=== PATIENT | male | born 1960 | race Caucasian/White ===

== ENCOUNTER 2019-01-24 12:10 | Inpatient (IN) ==
[2019-01-24 13:14] LABS: BASO# 0.02 X1000 (0.0-0.2); BASO% 0.1 % (0.0-0.8); IMM GRAN% 0.3 % (0.0-0.5); LYMPH# 0.57 X1000 (1.2-3.4); MCH 29.2 PG (27-31); MCHC 31.8 g/dL (33-37); MCV 91.9 FL (81-99); MONO# 1.48 X1000 (0.11-0.59); MONO% 5.1 % (1.7-9.3); MPV 9.3 FL (7.4-10.4); NEUT# 26.85 X1000 (1.4-6.5); NEUT% 92.5 % (42.2-75.2); PLT 201 X1000 (130-400); RBC 4.79 XMIL (4.7-6.1); RDW 13.6 % (11.5-14.5); WBC 29.02 X1000 (4.8-10.8)
--- NOTE | 2019-01-24 13:14 | PROVIDER DOCUMENTATION ---
HPI-General Adult - General Chief Complaint: Shortness of Breath Stated Complaint: LOW OXYGEN LEVEL Time Seen by Provider: 01/24/19 12:29 Source: patient Allergies/Adverse Reactions: Patient Allergies Allergy/AdvReac Type Severity Reaction Status Date / Time cephalexin monohydrate * Allergy Unknown Verified 01/10/18 12:54 [From Keflex] diazepam [From Valium] Allergy Unknown Verified 01/10/18 12:54 Home Medications: Home Medication List Medication Instructions Recorded Confirmed Last Taken Type Aspirin 81 mg PO DAILY 08/09/12 01/24/19 03/31/17 History Azelastine 137 Mcg Nasal Ennis 2 spray SANJEEV BID 08/09/12 01/24/19 03/31/17 History [Astelin Nasal Ennis] Docusate Sodium [Colace] 100 mg PO BID 08/09/12 01/24/19 03/31/17 History Fenofibrate 160 mg PO QHS 08/09/12 01/24/19 03/31/17 History Fluoxetine [Prozac] 10 mg PO BID 08/09/12 01/24/19 03/31/17 History Furosemide [Lasix] 20 mg PO DAILY 08/09/12 01/24/19 03/31/17 History Montelukast Sodium 10 mg PO QHS 08/09/12 01/24/19 03/31/17 History Donner-3 Fatty Acids/Fish Oil [Fish 1 each PO TID 08/09/12 01/24/19 03/31/17 History Oil 1,000 mg Softgel] Iron Carbonyl/Ascorbic Acid 1 each PO DAILY #0 tablet 01/31/14 01/24/19 03/31/17 Rx [Icar-C] Acetaminophen [Tylenol] 1,000 mg PO Q6H PRN PRN 01/12/18 01/24/19 Unknown History Buspirone [Buspar] 5 mg PO BID 01/12/18 01/24/19 Unknown History Ipratropium/Albuterol INH 1 puff INH RTQ8H 01/12/18 01/24/19 Unknown History [Combivent Respimat Inhaler] Metoclopramide [Reglan] 10 mg PO AC + HS 01/12/18 01/24/19 Unknown History Risperidone [Risperdal] 0.5 mg PO DAILY #0 01/16/18 01/24/1918 Rx Risperidone [Risperdal] 1 mg PO BID tablet 01/16/18 01/24/19 Unknown Rx Divalproex Sodium [Divalproex 3 tab PO HS 01/24/19 01/24/19 Unknown History Sodium ER] Lactulose 10 gm PO DAILY 01/24/19 01/24/19 Unknown History Lisinopril 10 mg PO DAILY 01/24/19 01/24/19 Unknown History Lovastatin 40 mg PO HS 01/24/19 01/24/19 Unknown History Ondansetron HCl 1 tab PO TID PRN PRN 01/24/19 01/24/19 Unknown History Pantoprazole Sodium [Protonix] 40 mg PO DAILY 01/24/19 01/24/19 Unknown History Potassium Chloride E.r. [Klor-Con] 10 meq PO DAILY 01/24/19 01/24/19 Unknown History Tamsulosin HCl 0.4 mg PO HS 01/24/19 01/24/19 Unknown History - History of Present Illness -Gen Adult Nature of Presenting Problems: Pt. is 59 yom that presents from a retirement with c/o SOB and low O2 sats. Staff reports that the nurse got a low O2 sat and sent him to his PCP whom sent him to the ED for evaluation. He is non-verbal and there is no other i nformation. Location of Pain/Injury: reports: none. denies: head, face, mouth, neck, chest, upper extremity, hand(s), abdomen, back, pelvis, genitalia, lower extremity, feet, upper body, lower body, generalized, other Pain Radiation: reports: no radiation. denies: arm(s), back, buttocks, chest, epigastric, feet, groin, jaw, flank (L), legs (lower), LLQ, LUQ, neck, periumbilical, flank (R), RLQ, RUQ, shoulder(s), scapula, scrotal, sternal notch , suprapubic, legs (upper), urethral, vaginal, other Quality of Pain: reports: none. denies: aching, pressure, tightness Severity: reports: moderate. denies: mild, severe Onset/Duration: reports: unsure Timing: reports: still present. denies: improving, intermittent, getting worse Context/Activities at Onset: reports: none. denies: light activity, moderate activity, vigorous activity, recent emotional stress, recent physical stress, recent trauma history, possible bad food, cold exposure, eating, out of country travel, rest, sleep, sexual activity, other Modifying Factors: improves with: nothing Associated Symptoms: reports: shortness of breath. denies: denies symptoms, anxiety, arm pain, back/neck pain, chest pain, constipation, cough, diaphoresis, diarrhea, dizziness, EENT symptoms, fatigue, fever/chills, genitourinary problems, headaches, heartburn, joint pain, loss of appetite, malaise, muscle aches, sinus congestion/drainage, nausea, rash, seizure, sensory/motor loss, pain with inspiration, swelling/mass in abdomen, syncope, vomiting, weakness, trouble walking, other Similar Symptoms Previously?: Yes Recently seen or treated by another doctor?: No Review of Systems - Adult - REVIEW OF SYSTEMS - ADULT Constitutional: reports: no symptoms reported Eyes: reports: no symptoms reported Ears, Nose, Mouth & Throat: reports: no symptoms reported Cardiovascular: reports: no symptoms reported Respiratory: reports: see HPI, shortness of breath. denies: chronic cough, hemoptysis, wheezing Gastrointestinal: reports: no symptoms reported Genitourinary: reports: no symptoms reported Musculoskeletal: reports: no symptoms reported Integumentary: reports: no symptoms reported Neurological: reports: no symptoms reported Psychiatric: reports: no symptoms reported Past History - Adult - PAST MEDICAL HISTORY-ADULT Review of Records: reports: Old Records Reviewed, Nursing Assessment Review, Medications Reviewed, Social history reviewed & non-contributory. Major Childhood Illnesses: reports: denies history Cardiovascular: reports: HTN, hyperlipidemia Respiratory: reports: asthma Gastrointestinal: reports: GERD Genitourinary: reports: kidney disease Musculoskeletal: reports: arthritis Neurological: reports: cognitive dysfunction, other (cerebral palsy; MR) Psychiatric: reports: psychiatric problems Endocrine/Immune: reports: denies history, Diabetes Other Conditions: reports: denies history - PRIOR SURGERIES/PROCEDURES Surgical/Procedure History: reports: none - IMMUNIZATION STATUS Childhood Immunizations: See Nurse Assessment Flu Vaccine: See Nurse Assessment - FAMILY HISTORY Family History: reviewed, not pertinent - SOCIAL HISTORY Smoking: non-smoker Physical Exam-General - PHYSICAL EXAM-ADULT Initial Vital Signs Reviewed: Yes - CONSTITUTIONAL General Appearance: mild distress, obese, lethargic. negative: anxious, slow to respond, obtunded, combative - EYES Eyes: PERRL/EOMI, pink conjunctivae - HEAD, EARS, NOSE, MOUTH & THROAT HENMT: normocephalic/atraumatic - NECK Neck: normal inspection - RESPIRATORY Respiratory: rhonchi (mild bilaterally). negative: crackles, stridor, wheezing - CARDIOVASCULAR Cardiovascular: normal peripheral pulses, regular rate, rhythm, no edema - GASTROINTESTINAL (ABDOMEN) Abdominal Exam: normal bowel sounds, non tender, soft - LYMPHATIC Lymphatic: no adenopathy - MUSCULOSKELETAL Back Exam: normal inspection Extremity: non-tender Peripheral Pulses: radial (R): 2+, radial (L): 2+ - SKIN Integumentary: pallor. negative: blanching, jaundice, swelling - NEUROLOGIC Neurologic: grossly normal, no motor/sensory deficits - PSYCHIATRIC Psych/Mental Status: normal mood/affect (Normal for patient.). negative: anxious, depressed affect, paranoid, tearful Progress - PLAN OF CARE/RESULTS Progress/Plan/Lab Results: Vital Signs - 8 hr 01/24/19 12:15 Temperature 98.8 F Pulse Rate 94 H Respiratory Rate 18 Blood Pressure 105/67 O2 Sat by Pulse Oximetry 86 L Orders Category Date Time Status Saline Loc NOW Care 01/24/19 12:33 Active CHEST-PORTABLE [RAD] Stat Exams 01/24/19 12:34 Ordered ABG [RESP] Routine Lab 01/24/19 12:35 Ordered BLOOD CULTURE [BLDCUL] Stat Lab 01/24/19 12:35 Uncollected CBC WITH ELECTRONIC DIFF [HEME] Stat Lab 01/24/19 12:53 Results COMPREHENSIVE METABOLIC PANEL [CHEM] Stat Lab 01/24/19 12:53 Received LACTATE, PLASMA [CHEM] Stat Lab 01/24/19 12:53 Received PRO B-NATRIURETIC PEPTIDE Stat Lab 01/24/19 12:53 Received TROPONIN T Stat Lab 01/24/19 12:53 Received URINALYSIS W/POSS RFLX CULT [URINALYSIS] Stat Lab 01/24/19 12:33 Uncollected EKG [EKG] Stat Ther 01/24/19 12:33 Ordered Result Diagrams: 01/24/19 12:53 01/24/19 12:53 - XRAY 1 XRAY Study: Chest ([facility] - [address], [address], [place] [address] [facility] - [address] [facility] [place] [address] Department of Imaging Patient: GODWIN JOHNSON EADM Date: 01/24/19MR#: [id number] : 1960DM Status: REG ERAcct#: [id number] Age/Sex: 59/MRoom/Bed: Loc: ED Ordering Physician: Opal Tang Family Physician: Irving Holloway MD Reason for Procedure: SOB Signed CHEST-PORTABLE - 01/24/2019 INDICATION: SOB COMPARISON: 08/30/2018 FINDINGS: Lung volumes are critically low. There is dense infiltrate in the left midlung and lung base. Heart size is top normal. No pneumothorax or large pleural effusion. IMPRESSION: Dense left-sided pneumonia. Critically low lung volumes. Electronically signed by Ronny Beckman 01/24/2019 1:35 PM 01/24/19 1335 Interpreting Physician: Ronny Beckman MD Dictated Date/Time: 01/24/19 1334 cc: Opal Tang; Irving Holloway MD) XRAY Interpretation: See note - CONSULTS/PCP/HOSPITALIST Notification #1 *Consult/PCP/Hospitalist*: Maria E Cronin Time Discussed: 14:21 Reason/Comments: Admission Consult Disposition: Will see in ED, Admit Departure - Departure Date of Disposition Decision: 01/24/19 Time of Disposition Decision: 13:35 DIAGNOSIS: Hyponatremia, Hypoxia, Hyperglycemia Pneumonia Qualifiers: Pneumonia type: due to unspecified organism Laterality: left Lung location: unspecified part of lung Qualified Code(s): J18.9 - Pneumonia, unspecified organism CKD (chronic kidney disease) Qualifiers: Chronic kidney disease stage: unspecified stage Qualified Code(s): N18.9 - Chronic kidney disease, unspecified Disposition: ADMITTED INPATIENT 09 Certified Medical Emergency: Emergent Condition: Stable Referrals and Follow-Ups: Irving Holloway MD [Primary Care Provider] - - Critical Care Note This patient required my direct & personal management of CC.: No Attestation - Physician/ JOSHUA Attestation Patient care was provided by Advanced Practice Provider:: Yes Advanced Practice Provider:: Opal Tang Advanced Practice Provider documentation review:: The Mid-level provider documentation, treatment plan and medical decision making was reviewed by the physician who agrees with all treatment and medical decision making by the MLP. The physician spent face to face time with patient:: No Advanced Practice Provider documentation review:: Supervising physician onsite and consulted in the evaluation and care of this patient. The physician did not have a face to face encounter with the patient.
[2019-01-24 13:24] LABS: ALLEN TEST YES; BE 3.7 mmoll (-3.0-3.0); BLOOD TYPE ARTERIAL; HCO3-(ACT) 27.6 mmoll (20.0-26.0); METHB 0.9 % (0.0-1.5); O2(CT) 17.8 mL/dL (15.0-23.0); PO2(98.6) 56 mmHg (60-100); SAMPLE BLOOD; SAO2 92.5 % (95.0-100.0); THB 14.2 g/dL (11.5-17.4); pH(98.6) 7.36 (7.35-7.45)
[2019-01-24 13:25] LABS: MODALITY ROOM AIR; PCO2(98.6) 54 mmHg (35-45)
[2019-01-24 13:26] LABS: O2HB 89.2 % (95.0-99.0)
[2019-01-24 13:29] LABS: ALB/GLOB RATIO 1.9; ALBUMIN 4.1 g/dL (3.5-5.0); CALCIUM 9.9 mg/dL (8.8-10.2); CREATININE 1.4 mg/dL (0.7-1.2); TOTAL BILIRUBIN 0.7 mg/dL (0.20-1.00); TOTAL PROTEIN 6.3 g/dL (6.3-8.3)
[2019-01-24] MEDS ORDERED: ZITHROMAX 500 MG/NS 500 MG/250 ML IVPB IV ONE (13:34)
--- NOTE | 2019-01-24 13:37 | Diag Imaging Result Doc PS360 ---
CHEST-PORTABLE - 01/24/2019 INDICATION: SOB COMPARISON: 08/30/2018 FINDINGS: Lung volumes are critically low. There is dense infiltrate in the left midlung and lung base. Heart size is top normal. No pneumothorax or large pleural effusion. IMPRESSION: Dense left-sided pneumonia. Critically low lung volumes. Electronically signed by Ronny Beckman 01/24/2019 1:35 PM
[2019-01-24] MEDS ORDERED: NS 1,000 ML IV ONE (13:43)
[2019-01-24] MEDS ORDERED: LEVAQUIN 500 MG/D5W 500 MG/100 ML IVPB IV ONE (13:44)
--- NOTE | 2019-01-24 14:32 | EKG Report ---
Test Performed on : 01/24/2019 2:24:11 PM Test Reason : SOB Blood Pressure : / mmHG Vent. Rate : 093 BPM Atrial Rate : 093 BPM P-R Int : 134 ms QRS Dur : 092 ms QT Int : 338 ms P-R-T Axes : 029 -09 032 degrees QTc Int : 420 ms Normal sinus rhythm. Normal ECG When compared with ECG of 15-JAN-2016 10:35, No significant change was found Unconfirmed Result
[2019-01-24] MEDS ORDERED: VANCOMYCIN IV PER PHARMACY MISC SCH ×2 (14:45→15:34)
[2019-01-24 14:52] LABS: URINE SOURCE CATH
[2019-01-24 14:55] LABS: BILIRUBIN URINE NEGATIVE (NEGATIVE); BLOOD URINE NEGATIVE (NEGATIVE); COLOR ORANGE; GLUCOSE URINE 150 mg/dL (NEGATIVE); KETONE URINE TRACE mg/dL (NEGATIVE); LEUKOCYTES URINE TRACE (NEGATIVE); NITRITE URINE NEGATIVE (NEGATIVE); PH URINE 6.5; PROTEIN URINE 50 mg/dL (NEGATIVE); SP GRAVITY URINE 1.029; TURBIDITY URINE CLEAR (CLEAR); UROBILINOGEN URINE 4 mg/dL (NORMAL)
[2019-01-24 14:58] LABS: UR EPITHELIAL CELLS >10 /HPF (<10); URINE BACTERIA NEGATIVE /HPF; URINE RBC <10 /HPF (<10)
[2019-01-24] MEDS ORDERED: AZACTAM 1 GM in NS 50 ML IV ONE (15:00)
[2019-01-24 15:03] LABS: URINE CASTS NONE SEEN
[2019-01-24] MEDS ORDERED: AZACTAM 1 GM in NS 50 ML IV SCH (15:34)
[2019-01-24] MEDS ORDERED: TYLENOL PO PRN (15:34)
[2019-01-24] MEDS: NS 1,000 ML IV SCH (15:58)
[2019-01-24] MEDS: AZACTAM 1 GM in NS 50 ML IV SCH ×2 (16:56→23:31)
[2019-01-24] MEDS ORDERED: VANCOMYCIN 2,000 MG in NS 500 ML IV ONE (17:00)
[2019-01-24 17:03] LABS: URINE SOURCE CATH
[2019-01-24 17:07] LABS: BILIRUBIN URINE NEGATIVE (NEGATIVE); BLOOD URINE TRACE (NEGATIVE); COLOR YELLOW; GLUCOSE URINE 100 mg/dL (NEGATIVE); KETONE URINE NEGATIVE (NEGATIVE); LEUKOCYTES URINE NEGATIVE (NEGATIVE); NITRITE URINE NEGATIVE (NEGATIVE); PH URINE 7.5; PROTEIN URINE TRACE mg/dL (NEGATIVE); SP GRAVITY URINE 1.016; TURBIDITY URINE CLEAR (CLEAR); UROBILINOGEN URINE 3 mg/dL (NORMAL)
[2019-01-24 17:10] LABS: UR EPITHELIAL CELLS >10 /HPF (<10); URINE BACTERIA NEGATIVE /HPF; URINE RBC <10 /HPF (<10); URINE WBC <10 /HPF (<10)
[2019-01-24 17:14] LABS: URINE CRYSTALS CA CARBONATE PRESENT; URINE SMALL ROUND CELLS RENAL PRESENT
[2019-01-24] MEDS ORDERED: DUONEB (A & A) INH PRN (18:06)
[2019-01-24] MEDS ORDERED: ZOFRAN IV PRN (18:07)
[2019-01-24] MEDS ORDERED: SODIUM CHLORIDE 0.9% INJ SCH (18:15)
[2019-01-24] MEDS: PROTONIX IV SCH (18:17)
[2019-01-24] MEDS: COLACE PO SCH (20:47)
[2019-01-24] MEDS: RISPERDAL PO SCH (20:47)
[2019-01-24] MEDS: LOFIBRA PO SCH (20:47)
[2019-01-24] MEDS: FLOMAX PO SCH (20:47)
[2019-01-24] MEDS: PROZAC PO SCH (20:47)
[2019-01-24] MEDS: DEPAKOTE ER PO SCH (20:51)
[2019-01-24] MEDS: DUONEB (A & A) INH SCH (21:31)
--- NOTE | 2019-01-24 21:44 | HISTORY AND PHYSICAL ---
CHIEF COMPLAINT: Was fever and worsening agitation and hypoxia. HISTORY OF PRESENT ILLNESS: This is a 59-year-old long-term patient with significant intellectual impairment, who presented with hypoxia. He was sent to his PCP, who is Dr. Holloway, who then sent him to the emergency department. He is nonverbal and very belligerent. So, there is really not much else to get information from. 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 He does appear to have cough, congestion. His temp here I think was stable, but he is hypoxic down to 77%. Chest x-ray showed a dense left-sided pneumonia and he was admitted for treatment. Because of relative hypoxia, he was placed in the ICU. PAST MEDICAL HISTORY: 1. Again, severe intellectual impairment with asthma. 2. Anxiety disorder. 3. Hypertension. 4. Dyslipidemia. 5. GERD. 6. Depression and anxiety associated intake intellectual impairment. 7. Diabetes. PAST SURGICAL HISTORY: None. SOCIAL HISTORY: senior living patient. No tobacco or alcohol. ALLERGIES: To Keflex and Valium. HOME MEDICATIONS: He is on fenofibrate 160, Singulair 10 daily, aspirin 81 daily, Astelin b.i.d., BuSpar 5 b.i.d., Colace 100 b.i.d., Depakote 750 at bedtime, fish oil t.i.d., Klor-Con 10 daily, lactulose 10 daily, Lasix 20 daily, lisinopril 10 daily, lovastatin 40 at bedtime, Zofran p.r.n., Protonix 40 daily, Prozac 10 b.i.d., Reglan 10 a.c. and at bedtime, Flomax 0.4 daily, Tylenol, Icar C, Risperdal 1 b.i.d. REVIEW OF SYSTEMS: Otherwise negative times a 10 point review of systems. PHYSICAL EXAM: VITAL SIGNS: Blood pressure is currently 104/64, heart rate of 82, respiratory rate of 22, temperature was 99 degrees. GENERALLY: Well-developed male no acute distress. HEAD: Exam was normocephalic, atraumatic. EYE EXAM: Pupils equal, round, reactive to light. Extraocular moves were intact. EAR NOSE AND THROAT EXAM: He had moist mucous membranes. NECK EXAM: Was supple. CARDIOVASCULAR: Was regular rate and rhythm. He does have rhonchi on exam. GI: Was soft, nontender, nondistended. Bowel sounds are positive. NEURO: Was nonfocal but I really could get him to participate in a complete exam and he does get fairly belligerent, but he could move his upper extremities. His lower extremity seemed somewhat contractured. SKIN: Was noted for no rash. LABORATORY DATA: White count was 29,000 with a hemoglobin and hematocrit of 14 and 44, platelets of 201,000 pH 7.36, pCO2 54, PO2 56, potassium 128, creatinine 1.4. PROBLEM LIST: 1. Pneumonia with acute respiratory failure. We will continue empiric antibiotics. The patient seems to be clinically improving. He has a multiple allergies and drug associations. He is on vancomycin and Azactam at this point and we will continue to follow. May need Pulmonary assistance. 2. Acute hypoxic respiratory failure. We will continue breathing treatments as best we can and pulmonary toilet and repeat chest x-ray tomorrow. 3. Reported history of diabetes, although I do not think he is taking any diabetic medications. We will check A1c, fasting blood sugars and follow. 4. Intellectual impairment with chronic agitation. We will continue all his home medications so we do not feel like there is any break in care from that standpoint. This is a service admission. cc: Poncho Cronin MD
[2019-01-24] MEDS: BUSPAR PO SCH (23:34)
[2019-01-25] MEDS: NS 1,000 ML IV SCH ×4 (00:44→21:25)
[2019-01-25] MEDS: DUONEB (A & A) INH SCH ×5 (03:49→22:52)
[2019-01-25 05:27] LABS: ALLEN TEST YES; BLOOD TYPE ARTERIAL; METHB 0.6 % (0.0-1.5); O2(CT) 18.3 mL/dL (15.0-23.0); O2HB 94.2 % (95.0-99.0); PO2(98.6) 85 mmHg (60-100); SAMPLE BLOOD; SAO2 96.6 % (95.0-100.0); THB 13.8 g/dL (11.5-17.4)
[2019-01-25 05:32] LABS: PCO2(98.6) 66 mmHg (35-45)
[2019-01-25 05:33] LABS: MODALITY CANNULA
[2019-01-25] MEDS: LOVENOX SUBQ SCH (05:49)
[2019-01-25 06:03] LABS: BASO# 0.01 X1000 (0.0-0.2); BASO% 0.1 % (0.0-0.8); EOS# 0.01 X1000 (0.0-0.7); EOS% 0.1 % (0.0-10.0); HEMATOCRIT 41.4 % (42.0-52.0); HEMOGLOBIN 12.7 g/dL (14.0-18.0); IMM GRAN# 0.03 X1000 (0.0-0.04); IMM GRAN% 0.2 % (0.0-0.5); LYMPH# 0.99 X1000 (1.2-3.4); LYMPH% 7.2 % (20.5-51.1); MCH 28.9 PG (27-31); MCHC 30.7 g/dL (33-37); MCV 94.1 FL (81-99); MONO# 0.76 X1000 (0.11-0.59); MONO% 5.5 % (1.7-9.3); MPV 9.1 FL (7.4-10.4); NEUT# 12.02 X1000 (1.4-6.5); NEUT% 86.9 % (42.2-75.2); PLT 181 X1000 (130-400); RDW 13.9 % (11.5-14.5); WBC 13.82 X1000 (4.8-10.8)
[2019-01-25 06:29] LABS: AGAP 10; ALB/GLOB RATIO 1.2; ALBUMIN 3.1 g/dL (3.5-5.0); ALKALINE PHOSPHATASE 49 U/L (32-122); BUN 13 mg/dL (8-22); CHLORIDE 99 mmol/L (98-107); COSMO 272; CREATININE 0.9 mg/dL (0.7-1.2); ESTIMATED GFR > 60; GLUCOSE 94 mg/dL (70-104); GOT 16 U/L (10-34); GPT 15 U/L (10-44); POTASSIUM 4.1 mmol/L (3.5-5.1); SODIUM 136 mmol/L (136-145); TCO2 27 mmol/L (25-35); TOTAL BILIRUBIN 0.35 mg/dL (0.20-1.00); TOTAL PROTEIN 5.6 g/dL (6.3-8.3)
[2019-01-25 06:44] LABS: LYMPHS 8 % (21-51); MONO 6 % (1-9); SEGS 86 % (42-75)
[2019-01-25] MEDS: AZACTAM 1 GM in NS 50 ML IV SCH ×4 (07:35→23:45)
--- NOTE | 2019-01-25 07:43 | Diag Imaging Result Doc PS360 ---
EXAM: CHEST-PORTABLE INDICATION: Pneumonia TECHNIQUE: One view COMPARISON: 01/24/2019 FINDINGS: There is better inspiration as compared to the previous study. The dense infiltrate in the left mid and lower lung zone is approximately stable. No new consolidation is identified. Cardiac silhouette is stable. IMPRESSION: Better inspiration. Stable chest, otherwise. Electronically signed by Donal Brannon 01/25/2019 7:40 AM
[2019-01-25] MEDS: BUSPAR PO SCH ×2 (08:12→21:00)
[2019-01-25] MEDS: RISPERDAL PO SCH ×3 (08:13→21:01)
[2019-01-25] MEDS: COLACE PO SCH ×3 (08:13→21:00)
[2019-01-25] MEDS: PRINIVIL PO SCH (08:13)
[2019-01-25] MEDS: PROZAC PO SCH ×3 (08:13→21:00)
[2019-01-25] MEDS: ASPIRIN PO SCH (08:13)
--- NOTE | 2019-01-25 10:33 | PROGRESS NOTE ---
DATE: 01/25/2019 SUBJECTIVE: The patient is nonverbal. As per the nursing staff, he has been eating okay. He has been requiring between 3 and 4 L of oxygen by nasal cannula. He has not been tachypneic. OBJECTIVE: Vital Signs: Temperature 97.0 degrees, heart rate 91, respiratory rate 14, blood pressure 138/91, O2 saturation 96% on 3 L nasal cannula. General Examination: This is a chronically ill-appearing, 59-year-old, male with a past medical history of mental retardation, lying in bed, in no acute distress, using a BiPAP mask. HEENT: Head is normocephalic and atraumatic. Mucous membranes are dry. Neck: No JVD noted. No carotid bruits. No lymphadenopathy. No thyromegaly. Cardiovascular Examination: S1 and S2 heard. Tachycardic. No murmurs, gallops, or rubs noted. Respiratory Examination: Minimal coarse breath sounds noted in both pulmonary bases. Patient is not using any accessory muscles or having work of breathing. Abdomen: Soft. A little bit distended. Nontender to palpation. Bowel sounds present. No organomegaly. Extremities: No clubbing, cyanosis, or edema. Peripheral pulses present in both legs. Neurological Examination: The patient is alert but nonverbal. Moves 4 extremities spontaneously. Laboratory Data: White cell count 13.92, hemoglobin 12.7, hematocrit 41.4, platelets 181,000. ABG that shows a pH of 7.30, with pCO2 of 66, PO2 of 85 nasal cannula at 3 L per minute. BMP is okay. ASSESSMENT AND PLAN: 1. Acute respiratory failure secondary to bibasilar pneumonia. Patient is on vancomycin and Azactam. Clinically, this patient is breathing better. White cell count continues to improve. At this point, we will continue with the same management. 2. Acute hypoxemic and hypercarbic respiratory failure. We will continue with oxygen supplementation and breathing treatments with DuoNebs every 6 hours. I think, at this point, we are going to increase it to every 4 hours scheduled and we will go from there. 3. Diabetes mellitus. We are checking Accu-Chek before meals and also at bedtime. We are going to check hemoglobin A1c but the blood sugar from this morning is 94. 4. Mental retardation with intellectual impairment and chronic agitation. We will continue home medications. 5. Disposition. I think this patient is getting better. Requiring BiPAP at this point. We will transfer this patient to [facility] today. cc: Frandy Rivera MD MTDD
[2019-01-25] MEDS: VANCOMYCIN 1,500 MG in NS 250 ML IV SCH (18:09)
[2019-01-25] MEDS: FLOMAX PO SCH ×2 (19:46→21:00)
[2019-01-25] MEDS: LOFIBRA PO SCH ×2 (19:47→21:00)
[2019-01-25] MEDS: DEPAKOTE ER PO SCH ×2 (19:47→21:00)
[2019-01-26] MEDS: DUONEB (A & A) INH SCH ×6 (03:25→22:58)
[2019-01-26 04:45] LABS: ALLEN TEST YES; BE 7.6 mmoll (-3.0-3.0); BLOOD TYPE ARTERIAL; HCO3-(ACT) 30.8 mmoll (20.0-26.0); O2(CT) 17.2 mL/dL (15.0-23.0); O2HB 94.4 % (95.0-99.0); PO2(98.6) 87 mmHg (60-100); SAMPLE BLOOD; SAO2 96.9 % (95.0-100.0); THB 12.9 g/dL (11.5-17.4); pH(98.6) 7.33 (7.35-7.45)
[2019-01-26 05:28] LABS: MODALITY BI PAP; PCO2(98.6) 68 mmHg (35-45)
[2019-01-26] MEDS: LOVENOX SUBQ SCH (05:56)
[2019-01-26 06:01] LABS: BASO# 0.01 X1000 (0.0-0.2); BASO% 0.1 % (0.0-0.8); EOS# 0.02 X1000 (0.0-0.7); EOS% 0.2 % (0.0-10.0); HEMATOCRIT 39.9 % (42.0-52.0); HEMOGLOBIN 12.3 g/dL (14.0-18.0); IMM GRAN# 0.03 X1000 (0.0-0.04); IMM GRAN% 0.3 % (0.0-0.5); LYMPH# 0.97 X1000 (1.2-3.4); LYMPH% 10.9 % (20.5-51.1); MCH 29.1 PG (27-31); MCHC 30.8 g/dL (33-37); MCV 94.5 FL (81-99); MONO# 0.67 X1000 (0.11-0.59); MONO% 7.5 % (1.7-9.3); MPV 9.1 FL (7.4-10.4); NEUT# 7.21 X1000 (1.4-6.5); PLT 204 X1000 (130-400); RBC 4.22 XMIL (4.7-6.1); RDW 13.4 % (11.5-14.5); WBC 8.91 X1000 (4.8-10.8)
[2019-01-26 06:40] LABS: AGAP 7; BUN 11 mg/dL (8-22); CALCIUM 9.5 mg/dL (8.8-10.2); CHLORIDE 94 mmol/L (98-107); COSMO 265; CREATININE 0.8 mg/dL (0.7-1.2); ESTIMATED GFR > 60; GLUCOSE 86 mg/dL (70-104); POTASSIUM 4.3 mmol/L (3.5-5.1); SODIUM 133 mmol/L (136-145); TCO2 32 mmol/L (25-35)
[2019-01-26] MEDS: PROTONIX IV SCH ×2 (08:05→20:30)
[2019-01-26] MEDS: BUSPAR PO SCH ×2 (09:51→20:29)
[2019-01-26] MEDS: ASPIRIN PO SCH (09:51)
[2019-01-26] MEDS: COLACE PO SCH ×2 (09:51→20:30)
[2019-01-26] MEDS: AZACTAM 1 GM in NS 50 ML IV SCH ×2 (09:52→16:01)
[2019-01-26] MEDS: PROZAC PO SCH ×2 (09:52→20:30)
[2019-01-26] MEDS: PRINIVIL PO SCH (09:52)
[2019-01-26] MEDS: RISPERDAL PO SCH ×3 (09:52→20:30)
[2019-01-26] MEDS: NS 1,000 ML IV SCH (10:11)
--- NOTE | 2019-01-26 13:00 | PROGRESS NOTE ---
DATE: 01/26/2019 SUBJECTIVE: Patient as per nursing staff, he needed to use BiPAP mask. He is not tachypneic upon my examination. OBJECTIVE: Vital Signs: Temperature 97.8 degrees, heart rate 73, respiratory rate 16, blood pressure 140/75, and O2 saturation 99% on BiPAP. General: This is a chronically ill-appearing, 59-year-old, male with past medical history of mental retardation lying in bed in no acute distress, and using a BiPAP mask. Cardiovascular: S1, S2 heard. No murmurs, gallops, or rubs. Regular rate and rhythm. Respiratory: Minimal coarse breath sounds noted in both pulmonary bases. Patient not using any accessory muscles or having work of breathing. Abdomen: Soft and nondistended, but nontender to palpation. Bowel sounds present. No organomegaly. Extremities: No clubbing, cyanosis, or edema. Peripheral pulses present in both legs. Neurological: Patient is alert, but nonverbal. Does not follow commands. Moves all 4 extremities spontaneously. LABORATORY DATA: White cell count 8.1, hemoglobin 12.3, hematocrit 39.9, and platelets 204,000 with ABG that shows pH 7.33 with pCO2 68. ABG was taken on BiPAP with sodium 133 and chloride 94. ASSESSMENT/PLAN: 1. Acute respiratory failure secondary to bibasilar pneumonia. Patient is on vancomycin and Azactam. Clinically, this patient is doing better. His CO2 unfortunately continues to be high so we will continue with BiPAP at this point. Pulmonary following this patient. We will follow recommendations. We will continue with BiPAP. We will check ABG tomorrow. 2. Diabetes mellitus type 2. We will continue with Accu-Cheks before meals and also at bedtime. 3. Mental retardation with intellectual impairment chronic condition. We will continue home medications. 4. Disposition: The patient continues to require BiPAP. I prefer to keep this patient here in [facility]. We will check x-ray tomorrow. We will go from there. cc: Frandy Rivera MD
[2019-01-26] MEDS: VANCOMYCIN 1,500 MG in NS 250 ML IV SCH (16:01)
[2019-01-26] MEDS: LOFIBRA PO SCH (20:30)
[2019-01-26] MEDS: FLOMAX PO SCH (20:30)
[2019-01-26] MEDS: DEPAKOTE ER PO SCH (20:35)
[2019-01-27] MEDS: NS 1,000 ML IV SCH ×2 (00:11→15:03)
[2019-01-27] MEDS: AZACTAM 1 GM in NS 50 ML IV SCH ×3 (00:16→15:03)
[2019-01-27] MEDS: DUONEB (A & A) INH SCH ×6 (03:25→22:43)
[2019-01-27] MEDS: LOVENOX SUBQ SCH (05:05)
[2019-01-27 05:10] LABS: ALLEN TEST YES; BE 7.8 mmoll (-3.0-3.0); BLOOD TYPE ARTERIAL; HCO3-(ACT) 30.9 mmoll (20.0-26.0); O2(CT) 17.1 mL/dL (15.0-23.0); O2HB 94.6 % (95.0-99.0); PO2(98.6) 77 mmHg (60-100); SAMPLE BLOOD; SAO2 97.4 % (95.0-100.0); THB 12.8 g/dL (11.5-17.4)
[2019-01-27 05:15] LABS: MODALITY BI PAP; PCO2(98.6) 75 mmHg (35-45)
[2019-01-27 07:22] LABS: EOS# 0.04 X1000 (0.0-0.7); EOS% 0.5 % (0.0-10.0); HEMATOCRIT 41.2 % (42.0-52.0); HEMOGLOBIN 12.9 g/dL (14.0-18.0); IMM GRAN# 0.02 X1000 (0.0-0.04); IMM GRAN% 0.2 % (0.0-0.5); LYMPH# 0.86 X1000 (1.2-3.4); LYMPH% 10.1 % (20.5-51.1); MCH 29.3 PG (27-31); MCHC 31.3 g/dL (33-37); MCV 93.4 FL (81-99); MONO# 0.75 X1000 (0.11-0.59); MONO% 8.8 % (1.7-9.3); MPV 9.1 FL (7.4-10.4); NEUT# 6.82 X1000 (1.4-6.5); NEUT% 80.4 % (42.2-75.2); PLT 190 X1000 (130-400); RBC 4.41 XMIL (4.7-6.1); RDW 13.4 % (11.5-14.5); WBC 8.49 X1000 (4.8-10.8)
[2019-01-27 07:46] LABS: AGAP 8; BUN 10 mg/dL (8-22); CALCIUM 9.8 mg/dL (8.8-10.2); CHLORIDE 94 mmol/L (98-107); COSMO 269; CREATININE 0.9 mg/dL (0.7-1.2); ESTIMATED GFR > 60; GLUCOSE 124 mg/dL (70-104); POTASSIUM 4.1 mmol/L (3.5-5.1); SODIUM 134 mmol/L (136-145); TCO2 32 mmol/L (25-35)
[2019-01-27] MEDS: PROZAC PO SCH ×2 (08:30→21:03)
[2019-01-27] MEDS: ASPIRIN PO SCH (08:31)
[2019-01-27] MEDS: COLACE PO SCH ×2 (08:31→21:04)
[2019-01-27] MEDS: BUSPAR PO SCH ×2 (08:31→21:03)
[2019-01-27] MEDS: RISPERDAL PO SCH ×3 (08:31→21:04)
[2019-01-27] MEDS: PRINIVIL PO SCH (08:31)
[2019-01-27 09:02] LABS: ALLEN TEST YES; BLOOD TYPE ARTERIAL; HCO3-(ACT) 30.3 mmoll (20.0-26.0); METHB 0.8 % (0.0-1.5); O2HB 93.4 % (95.0-99.0); PO2(98.6) 71 mmHg (60-100); SAMPLE BLOOD; SAO2 95.9 % (95.0-100.0); THB 13.7 g/dL (11.5-17.4); pH(98.6) 7.35 (7.35-7.45)
[2019-01-27 09:05] LABS: MODALITY BI PAP; PCO2(98.6) 63 mmHg (35-45)
--- NOTE | 2019-01-27 11:50 | PROGRESS NOTE ---
DATE: 01/27/2019 SUBJECTIVE: Mr. Mak was admitted on 01/24/2019. A 59-year-old, lives in a snf with significant intellectual impairment, who presented with hypoxemia, was sent to his primary care physician, Dr. Holloway, who sent him to the emergency department. He is nonverbal and can be very belligerent at times, so there is not really any more information they could get at the snf. He appeared to have cough and congestion. Temperature I think was stable, but he was hypoxic with O2 saturation 77%. Chest x-ray showed dense left-sided pneumonia, was admitted for treatment. PAST MEDICAL HISTORY: 1. Severe intellectual impairment with asthma. 2. Anxiety disorder. 3. Hypertension. 4. Hyper dyslipidemia. 5. Gastroesophageal reflux disease. 6. Depression/anxiety associated with increasing intellectual impairment. 7. Diabetes mellitus type 2. ADMISSION DIAGNOSES: 1. Pneumonia with acute respiratory failure. Started on empiric antibiotics. Put him on vancomycin and Azactam. Had acute hypoxemic respiratory failure. 2. Diabetes mellitus type 2. 3. Intellectual impairment, chronic agitation. OBJECTIVE: Vital Signs: On exam today he was in four-point restraints, had a Pizano catheter in. Temperature 97.9 degrees, pulse 76, respirations 20, blood pressure 155/80. Eyes: Pupils are equal and round. Lungs: Lungs are clear in all lung sanders. Cardiovascular exam: Regular rhythm and rate without murmur or S3. Abdomen: Abdomen is soft. Skin: Skin is warm and dry. : Urine output was 2700 mL. ASSESSMENT AND PLAN: 1. Acute respiratory failure secondary to bibasilar pneumonia. The patient on vancomycin and Azactam. He is doing better clinically. His CO2 unfortunately continues to be high, so continue BiPAP. He is on the BiPAP at the present time, and we will continue to check arterial blood gas and air and gas exchange. 2. Diabetes mellitus type 2. Sugars appear under reasonable control. 3. Mental retardation, intellectual impairment, chronic condition. He is at a snf and apparently has frequent agitation. He is in 4-point restraint. 4. Disposition: Continue to try and improve his oxygen requirement. He is on fenofibrate 160 mg at bedtime. He is on aspirin 81 mg a day, aztreonam 1 g intravenous every 8 hours, BuSpar 5 mg twice daily, docusate 100 mg twice daily, Prozac 10 mg oral twice daily, normal saline at 75 mL an hour, Protonix 40 mg intravenous every 24 hours, risperidone 0.5 mg oral daily and 1 mg oral twice daily, Flomax 0.4 mg at bedtime, vancomycin 1500 mg intravenous every 24 hours. REVIEW OF LABS: Lab today: White count is 8490, hematocrit is 41, platelet count 190,000. Sodium 134, potassium 4.1, chloride 94. BUN 10, creatinine 0.9. cc: Clyde Nunez MD
--- NOTE | 2019-01-27 13:33 | Diag Imaging Result Doc PS360 ---
CHEST-PORTABLE - 01/27/2019 INDICATION: pna COMPARISON: 01/25/2019 FINDINGS: Lung volumes are much lower. Accounting for this, there is no change in the diffuse infiltrate throughout the left midlung and lung base. Stable mild cardiomegaly. IMPRESSION: Much lower lung volumes. Otherwise no change from prior. Electronically signed by Ronny Beckman 01/27/2019 1:31 PM
[2019-01-27] MEDS: VANCOMYCIN 1,500 MG in NS 250 ML IV SCH (18:25)
[2019-01-27] MEDS: PROTONIX IV SCH (21:03)
[2019-01-27] MEDS: FLOMAX PO SCH (21:03)
[2019-01-27] MEDS: DEPAKOTE ER PO SCH (21:04)
[2019-01-27] MEDS: LOFIBRA PO SCH (21:04)
[2019-01-28] MEDS: AZACTAM 1 GM in NS 50 ML IV SCH ×3 (00:50→15:43)
[2019-01-28] MEDS: DUONEB (A & A) INH SCH ×6 (03:09→22:52)
[2019-01-28] MEDS: NS 1,000 ML IV SCH ×2 (03:46→15:43)
[2019-01-28] MEDS: VANCOMYCIN 1,500 MG in NS 250 ML IV SCH ×2 (05:00→16:51)
[2019-01-28] MEDS: LOVENOX SUBQ SCH (05:01)
[2019-01-28 06:35] LABS: BASO# 0.01 X1000 (0.0-0.2); BASO% 0.2 % (0.0-0.8); EOS# 0.06 X1000 (0.0-0.7); EOS% 1.1 % (0.0-10.0); HEMATOCRIT 40.9 % (42.0-52.0); IMM GRAN# 0.02 X1000 (0.0-0.04); IMM GRAN% 0.4 % (0.0-0.5); LYMPH# 0.85 X1000 (1.2-3.4); MCH 29.5 PG (27-31); MCHC 31.8 g/dL (33-37); MCV 92.7 FL (81-99); MONO# 0.55 X1000 (0.11-0.59); MONO% 9.7 % (1.7-9.3); NEUT# 4.19 X1000 (1.4-6.5); NEUT% 73.6 % (42.2-75.2); PLT 205 X1000 (130-400); RBC 4.41 XMIL (4.7-6.1); RDW 12.9 % (11.5-14.5); WBC 5.68 X1000 (4.8-10.8)
[2019-01-28 07:01] LABS: AGAP 6; BUN 7 mg/dL (8-22); CALCIUM 9.6 mg/dL (8.8-10.2); CHLORIDE 94 mmol/L (98-107); COSMO 268; CREATININE 0.8 mg/dL (0.7-1.2); ESTIMATED GFR > 60; GLUCOSE 129 mg/dL (70-104); POTASSIUM 4.8 mmol/L (3.5-5.1); SODIUM 134 mmol/L (136-145); TCO2 34 mmol/L (25-35)
[2019-01-28] MEDS: ASPIRIN PO SCH (08:20)
[2019-01-28] MEDS: PRINIVIL PO SCH (08:20)
[2019-01-28] MEDS: PROZAC PO SCH ×2 (08:20→22:14)
[2019-01-28] MEDS: BUSPAR PO SCH ×2 (08:20→22:13)
[2019-01-28] MEDS: RISPERDAL PO SCH ×3 (08:20→22:12)
[2019-01-28] MEDS: COLACE PO SCH ×2 (08:20→22:16)
--- NOTE | 2019-01-28 08:27 | PROGRESS NOTE ---
DATE: 01/28/2019 SUBJECTIVE: Mr. Mak is comfortable. He was sleeping. He was easy to arouse. His breathing appears comfortable. OBJECTIVE: Vital Signs: Temp 97.7 degrees, pulse 80, respirations 17, blood pressure 161/98. HEENT: Pupils are equal and round. Lungs: Clear in all lung sanders. Cardiovascular: Regular rhythm and rate without murmur or S3. Urine output is 4800 mL, so good urine output. IMAGING: Chest x-ray from yesterday: Much lower lung volumes, otherwise no change from prior. ASSESSMENT AND PLAN: 1. Acute respiratory failure secondary to bibasilar pneumonia, on vancomycin and Azactam. He is clinically doing better with better air and gas exchange. Continue bilevel positive airway pressure as needed. 2. Diabetes mellitus type 2. Sugar is under better control. 3. Mental retardation, intellectual impairment, chronic condition. He lives in a usp. He is still in 4-point restraint. 4. Disposition. Hopefully can go home soon. REVIEW OF ORDERS: I do not see any change. LABORATORY DATA: Today, white count 5680, hematocrit is 40, platelet count is 205,000. Sodium 134, potassium 4.8, chloride 94, BUN 7, creatinine 0.8. cc: Clyde Nunez MD
--- NOTE | 2019-01-28 13:26 | Diag Imaging Result Doc PS360 ---
CHEST-PORTABLE - 01/28/2019 INDICATION: possible aspiration COMPARISON: 01/27/2019 FINDINGS: Stable cardiomegaly and pulmonary vascular congestion. There has been significant improvement in the bilateral central and basilar infiltrates. No new infiltrates. No pneumothorax or pleural effusion. IMPRESSION: Significant improvement from prior. Electronically signed by Ronny Beckman 01/28/2019 1:24 PM
[2019-01-28] MEDS: PROTONIX IV SCH (22:00)
[2019-01-28] MEDS: FLOMAX PO SCH (22:13)
[2019-01-28] MEDS: DEPAKOTE ER PO SCH (22:14)
[2019-01-28] MEDS: LOFIBRA PO SCH (22:16)
[2019-01-29] MEDS: AZACTAM 1 GM in NS 50 ML IV SCH ×2 (00:04→09:18)
[2019-01-29] MEDS: DUONEB (A & A) INH SCH ×6 (03:35→23:47)
[2019-01-29 04:27] LABS: BASO# 0.01 X1000 (0.0-0.2); BASO% 0.2 % (0.0-0.8); EOS# 0.08 X1000 (0.0-0.7); EOS% 1.8 % (0.0-10.0); HEMATOCRIT 39.5 % (42.0-52.0); HEMOGLOBIN 12.4 g/dL (14.0-18.0); IMM GRAN# 0.03 X1000 (0.0-0.04); IMM GRAN% 0.7 % (0.0-0.5); LYMPH# 1.05 X1000 (1.2-3.4); LYMPH% 24.2 % (20.5-51.1); MCHC 31.4 g/dL (33-37); MCV 92.3 FL (81-99); MONO# 0.47 X1000 (0.11-0.59); MONO% 10.9 % (1.7-9.3); MPV 8.7 FL (7.4-10.4); NEUT# 2.69 X1000 (1.4-6.5); NEUT% 62.2 % (42.2-75.2); PLT 223 X1000 (130-400); RBC 4.28 XMIL (4.7-6.1); RDW 13.2 % (11.5-14.5); WBC 4.33 X1000 (4.8-10.8)
[2019-01-29 04:52] LABS: AGAP 8; BUN 8 mg/dL (8-22); CALCIUM 9.2 mg/dL (8.8-10.2); CHLORIDE 96 mmol/L (98-107); COSMO 273; ESTIMATED GFR > 60; GLUCOSE 108 mg/dL (70-104); POTASSIUM 4.4 mmol/L (3.5-5.1); SODIUM 137 mmol/L (136-145); TCO2 33 mmol/L (25-35)
[2019-01-29] MEDS: LOVENOX SUBQ SCH (06:24)
[2019-01-29] MEDS: RISPERDAL PO SCH ×3 (09:18→21:43)
[2019-01-29] MEDS: PRINIVIL PO SCH (09:18)
[2019-01-29] MEDS: PROZAC PO SCH ×2 (09:18→21:43)
[2019-01-29] MEDS: ASPIRIN PO SCH (09:18)
[2019-01-29] MEDS: COLACE PO SCH ×2 (09:18→21:43)
[2019-01-29] MEDS: BUSPAR PO SCH ×2 (09:18→21:43)
[2019-01-29] MEDS: NS 1,000 ML IV SCH (09:19)
[2019-01-29] MEDS: VANCOMYCIN 1,500 MG in NS 250 ML IV SCH (11:42)
[2019-01-29] MEDS: PROTONIX PO SCH (11:46)
--- NOTE | 2019-01-29 16:23 | PROGRESS NOTE ---
DATE: 01/29/2019 Mr. Mak appears comfortable. He is still in 4-point restraint. He does not like you touching him or really even messing with him at all. Temperature 98.3 degrees, pulse 92, respirations 18, blood pressure 163/87. Pupils are equal and round. Lungs are clear in all lung sanders. Cardiovascular. Regular rhythm, rate without murmur or S3. Urine output 3000 mL. Chest x-ray significant improvement from prior exam, stable cardiomegaly, pulmonary vascular congestion. There has been significant improvement bilateral central basilar infiltrates. No new infiltrates. His blood culture grew out Streptococcus anginosus in 1 of 2 blood cultures. Urine culture was negative. His IV has come out so will try and switch him to p.o. Levaquin. ASSESSMENT AND PLAN: 1. Acute respiratory failure second bibasilar pneumonia. He is on vancomycin and Azactam. Clinically doing better. Continue bilevel positive airway if needed but his air and gas exchange is improved. 2. Diabetes mellitus type 2, sugar under good control. 3. Mental retardation, intellectual impairment, chronic condition, and he requires 4-point restraint. He is very agitated. 4. Disposition. I think he can go soon. Switched him to p.o. Levaquin. He also has benign prostatic hypertrophy for which he takes Flomax 0.4 mg at bedtime. cc: Clyde Nunez MD
[2019-01-29] MEDS: LEVAQUIN PO SCH (17:38)
[2019-01-29] MEDS: FLOMAX PO SCH (21:43)
[2019-01-29] MEDS: DEPAKOTE ER PO SCH (21:44)
[2019-01-29] MEDS: LOFIBRA PO SCH (21:44)
[2019-01-30] MEDS: DUONEB (A & A) INH SCH ×6 (03:44→23:30)
[2019-01-30] MEDS: LOVENOX SUBQ SCH (06:01)
[2019-01-30] MEDS: PROTONIX PO SCH (06:01)
[2019-01-30] MEDS: RISPERDAL PO SCH ×3 (09:01→21:06)
[2019-01-30] MEDS: BUSPAR PO SCH ×2 (09:01→21:06)
[2019-01-30] MEDS: ASPIRIN PO SCH (09:01)
[2019-01-30] MEDS: COLACE PO SCH ×2 (09:01→21:06)
[2019-01-30] MEDS: PRINIVIL PO SCH (09:01)
[2019-01-30] MEDS: LEVAQUIN PO SCH (09:01)
[2019-01-30] MEDS: PROZAC PO SCH ×2 (09:01→21:06)
--- NOTE | 2019-01-30 12:55 | PROGRESS NOTE ---
DATE: 01/30/2019 SUBJECTIVE: Mr. Mak is more awake and alert. He is still in 4 point restraint. Appears to be in no distress. Breathing comfortably. OBJECTIVE: Temperature 98.7 degrees, pulse 98, respirations 18, blood pressure 140/88. Pupils are equal and round. Lungs are clear in all lung sanders. Cardiovascular Examination: Regular rhythm and rate without murmur or S3. Urine output is 6200 mL. ASSESSMENT AND PLAN: 1. Acute respiratory failure secondary to bibasilar pneumonia, doing much better. He is on vancomycin and Azactam. I think we switched him over to oral Levaquin. Lost intravenous access. I think he can go home soon or go back to his long-term. 2. Diabetes mellitus type 2. 3. Mental retardation, intellectual impairment, chronic condition, requires a lot of assistance. 4. Disposition. Hopefully, he can go home soon. cc: Clyde Nunez MD
[2019-01-30] MEDS: DEPAKOTE ER PO SCH (21:05)
[2019-01-30] MEDS: LOFIBRA PO SCH (21:06)
[2019-01-30] MEDS: FLOMAX PO SCH (21:06)
[2019-01-30] MEDS ORDERED: TESSALON PO PRN (22:21)
[2019-01-31] MEDS: DUONEB (A & A) INH SCH ×6 (03:37→23:08)
[2019-01-31] MEDS: LOVENOX SUBQ SCH ×2 (05:33→06:08)
--- NOTE | 2019-01-31 05:40 | Diag Imaging Result Doc PS360 ---
EXAM: CHEST-PORTABLE HISTORY: aspiration TECHNIQUE: Single view COMPARISON: 01/28/2019 FINDINGS: Poor inspiratory effort. Heart is mildly prominent and there is mild vascular distention. No consolidation or pleural effusions identified. IMPRESSION: No interval improvement Electronically signed by Erickson Díaz 01/31/2019 5:37 AM
[2019-01-31] MEDS: PROTONIX PO SCH (06:08)
[2019-01-31] MEDS: PROZAC PO SCH ×2 (08:37→20:51)
[2019-01-31] MEDS: BUSPAR PO SCH ×2 (08:37→20:52)
[2019-01-31] MEDS: ASPIRIN PO SCH (08:37)
[2019-01-31] MEDS: LEVAQUIN PO SCH (08:37)
[2019-01-31] MEDS: RISPERDAL PO SCH ×3 (08:37→20:51)
[2019-01-31] MEDS: PRINIVIL PO SCH (08:37)
[2019-01-31] MEDS: COLACE PO SCH ×2 (08:37→20:51)
--- NOTE | 2019-01-31 13:58 | PROGRESS NOTE ---
DATE: 01/31/2019 SUBJECTIVE: Mr. Mak is comfortable, breathing comfortably. Hopefully we can get him back to the nursing home soon. He is still in 4-point restraint. OBJECTIVE: Vital Signs: Temperature 98.3 degrees, pulse 100, respirations 18, blood pressure 197/91, but his blood pressures last four were 123/77, 149/81, 120/82, and last one 197/91. Eyes: Pupils are equal. Neck: No distended neck veins. Lungs: Clear in all lung sanders. Cardiovascular exam: Regular rhythm and rate without murmur or S3. X-RAYS: Chest x-ray with no interval improvement. He did have an episode with aspiration yesterday. He is breathing comfortably at the present time. ASSESSMENT AND PLAN: 1. Acute respiratory failure secondary to bibasilar pneumonia, which I think is improving clinically. He is on vancomycin and Azactam, and then he lost his intravenous line, so he is on oral Levaquin at this time. 2. Diabetes mellitus type 2. 3. Mental retardation and intellectual impairment, chronic condition. Hopefully, he can go back to the nursing home soon. 4. Nutrition good. He is eating well. REVIEW OF HIS ORDERS: I do not see any change. He is on Depakote 750 mg daily, BuSpar 5 mg twice a day, Prinivil 10 mg a day, Risperdal 0.5 mg a day and 1 mg b.i.d., Flomax 0.4 mg at bedtime. cc: Clyde Nunez MD
[2019-01-31] MEDS: LOFIBRA PO SCH (20:51)
[2019-01-31] MEDS: FLOMAX PO SCH (20:51)
[2019-01-31] MEDS: DEPAKOTE ER PO SCH (20:51)
[2019-02-01] MEDS: DUONEB (A & A) INH SCH ×6 (03:20→23:00)
[2019-02-01] MEDS: PROTONIX PO SCH (06:05)
[2019-02-01] MEDS: LOVENOX SUBQ SCH (06:05)
[2019-02-01] MEDS: BUSPAR PO SCH ×2 (08:17→21:00)
[2019-02-01] MEDS: RISPERDAL PO SCH ×3 (08:18→21:00)
[2019-02-01] MEDS: PROZAC PO SCH ×2 (08:18→21:00)
[2019-02-01] MEDS: PRINIVIL PO SCH (08:18)
[2019-02-01] MEDS: LEVAQUIN PO SCH (08:18)
[2019-02-01] MEDS: COLACE PO SCH ×2 (08:18→21:00)
[2019-02-01] MEDS: ASPIRIN PO SCH (08:18)
--- NOTE | 2019-02-01 09:54 | PROGRESS NOTE ---
DATE: 02/01/2019 SUBJECTIVE: Mr. Mak is breathing comfortably. He is eating well. He is still in 4-point restraints. Does not like to be bothered, but appears to be comfortable and resting comfortably. OBJECTIVE: Vital Signs: Temp 98.4 degrees, pulse 93, respirations 17, blood pressure 130/85. HEENT: Pupils are equal and round. Lungs: Clear in all lung sanders. Cardiovascular: Regular rhythm and rate without murmur or S3. IMAGING: His chest x-ray from 01/31/2019 had poor inspiratory effort, heart mildly prominent, there is mild vascular distention, no consolidation or pleural effusions. ASSESSMENT AND PLAN: 1. Acute respiratory failure secondary to bibasilar pneumonia, which I think is improved radiographically and clinically. He is on vancomycin and Azactam. We had switched him to oral Levaquin at this time. He is getting 750 mg by mouth daily. We need to get his oxygen requirement down so he can be discharged. I think he is [facility]. 2. History of diabetes mellitus type 2. Sugars appear to be appropriate. 3. Intellectual impairment, chronic agitation, and required a 4-point restraint. I think he will do better at his home environment, so trying to get him ready to go back [facility]. He is on Risperdal 0.5 mg daily and then 1 mg b.i.d., Flomax 0.4 mg at bedtime, Prinivil 10 mg daily. He is on Levaquin 750 mg p.o. daily, Prozac 10 mg twice a day, Colace 100 mg b.i.d., Depakote 750 mg at bedtime, BuSpar 5 mg b.i.d., Tessalon Perles 100 mg p.o. t.i.d. p.r.n., aspirin 81 mg a day, fenofibrate 160 mg at bedtime. cc: Clyde Nunez MD
[2019-02-01] MEDS: DEPAKOTE ER PO SCH (21:00)
[2019-02-01] MEDS: LOFIBRA PO SCH (21:00)
[2019-02-01] MEDS: FLOMAX PO SCH (21:00)
[2019-02-02] MEDS: DUONEB (A & A) INH SCH ×6 (03:16→23:34)
[2019-02-02] MEDS: LOVENOX SUBQ SCH (06:12)
[2019-02-02] MEDS: PROTONIX PO SCH (06:12)
[2019-02-02] MEDS ORDERED: CHLORASEPTIC SPRAY MT PRN (09:47)
[2019-02-02] MEDS ORDERED: TUSSIONEX LIQUID PO PRN (09:47)
[2019-02-02] MEDS: BUSPAR PO SCH ×2 (09:59→20:50)
[2019-02-02] MEDS: TESSALON PO PRN ×2 (09:59→16:52)
[2019-02-02] MEDS: ASPIRIN PO SCH (09:59)
[2019-02-02] MEDS: RISPERDAL PO SCH ×3 (10:00→20:51)
[2019-02-02] MEDS: PRINIVIL PO SCH (10:00)
[2019-02-02] MEDS: COLACE PO SCH ×2 (10:00→20:50)
[2019-02-02] MEDS: LEVAQUIN PO SCH (10:00)
[2019-02-02] MEDS: PROZAC PO SCH ×2 (10:00→20:51)
--- NOTE | 2019-02-02 12:48 | PROGRESS NOTE ---
DATE: 02/02/2019 SUBJECTIVE: Mr. Mak has a real raspy cough and he is coughing frequently. I think the postnasal drainage and the mucus is irritating his throat. He is not able to communicate much. He is still in 4 point restraint. I am going to try some cough medicine and something that will kind of just help the agitation. His breathing seems to be comfortable. There has been some concern about his swallowing, but I do not think he will be able to cooperate with a swallow study and I do not know what benefit we will obtain. We will continue his soft mechanical diet OBJECTIVE: Vital Signs: Temperature 98.5 degrees, pulse 90, respirations 20, blood pressure 111/77. HEENT: Pupils are equal and round. Lungs: Clear in all lung sanders. Cardiovascular: Regular rhythm and rate without murmur or S3. Urine output is 1800 mL. ASSESSMENT AND PLAN: 1. Acute respiratory failure secondary to bibasilar pneumonia and this is improving. He is just on p.o. antibiotic with levothyroxine. Try to get down his supplementary O2 before he can be discharged back to intermediate. 2. Diabetes mellitus type 2. Sugar is under pretty good control. 3. Intellectual impairment, cognitive, chronic agitation. At present time, requiring four-point restraint still. 4. May have some trouble with swallowing. I do not know of any feasible way to fix this or to improve it and so we will continue his mechanical soft diet. 5. Benign prostatic hypertrophy. He is on Flomax. 6. Hypertension. Blood pressure appears well controlled. REVIEW OF HIS ORDERS: I do not see any change. He is on aspirin 81 mg a day, Tessalon Perles I just started, BuSpar 5 mg b.i.d., Depakote 750 mg at bedtime, that is divalproex ER 750 mg at bedtime, Prozac 10 mg b.i.d., Levaquin 750 mg a day, Prinivil 10 mg a day, Protonix 40 mg a day, Risperdal 0.5 mg a day and 1 mg b.i.d., Flomax 0.4 mg at bedtime. cc: Clyde Nunez MD
[2019-02-02] MEDS: DEPAKOTE ER PO SCH (20:50)
[2019-02-02] MEDS: FLOMAX PO SCH (20:50)
[2019-02-02] MEDS: LOFIBRA PO SCH (20:51)
[2019-02-03] MEDS: DUONEB (A & A) INH SCH ×6 (03:15→22:59)
[2019-02-03] MEDS: LOVENOX SUBQ SCH (06:19)
[2019-02-03] MEDS: PROTONIX PO SCH (06:19)
[2019-02-03] MEDS: ASPIRIN PO SCH (09:34)
[2019-02-03] MEDS: LEVAQUIN PO SCH (09:36)
[2019-02-03] MEDS: RISPERDAL PO SCH ×3 (09:36→21:18)
[2019-02-03] MEDS: PRINIVIL PO SCH (09:36)
[2019-02-03] MEDS: BUSPAR PO SCH ×2 (09:36→21:17)
[2019-02-03] MEDS: COLACE PO SCH ×2 (09:36→21:18)
--- NOTE | 2019-02-03 10:12 | PROGRESS NOTE ---
DATE: 02/03/2019 SUBJECTIVE: Mr. Mak is still in 4 point restraints. He moved from [facility] to the 3rd floor. He still has Pizano catheter in. He appears more comfortable. He is not coughing like he was yesterday. He ate all of his breakfast. OBJECTIVE: Vital signs: Temperature 98 degrees, pulse 78, respirations 18, blood pressure 124/65. HEENT: Pupils are equal and round. Lungs: Clear in all lung sanders. Cardiovascular: Regular rhythm and rate without murmur or S3. Abdomen: Soft. Skin: Warm and dry. ASSESSMENT AND PLAN: 1. Acute respiratory failure secondary to bibasilar pneumonia and this is clinically improving. Continue his antibiotic with levothyroxine p.o., probably continue that another 7 days. 2. Diabetes mellitus type 2. Sugars under good control. 3. Intellectual impairment, chronic cognitive impairment. He seems calmer and less agitated. Still requires 4 point restraints, he is a very strong, big man. 4. He has had some episodes of aspiration. I do not think this is going to be a fixable problem. He seemed to eat his breakfast fine and lungs sound clear this morning. 5. Benign prostatic hypertrophy. Continue Flomax. 6. Hypertension. REVIEW OF HIS ORDERS: Looking over his orders, he is on fenofibrate 160 mg daily. He is on aspirin 81 mg a day, BuSpar 5 mg b.i.d., Depakote ER 750 mg at bedtime, Colace 100 mg b.i.d., Prozac 100 mg b.i.d., and we are giving him low-dose Lovenox 30 mg daily, I think we can stop that. Levaquin 750 mg a day, Prinivil 10 mg daily, and Protonix 40 mg daily, Risperdal 0.5 mg daily and 1 mg of Risperdal twice a day, Flomax 0.4 mg. cc: Clyde Nunez MD
[2019-02-03] MEDS: PROZAC PO SCH ×3 (17:31→21:18)
[2019-02-03] MEDS: FLOMAX PO SCH (21:18)
[2019-02-03] MEDS: LOFIBRA PO SCH (21:18)
[2019-02-03] MEDS: DEPAKOTE ER PO SCH (21:18)
[2019-02-04] MEDS: DUONEB (A & A) INH SCH ×6 (02:33→23:15)
[2019-02-04] MEDS: PROTONIX PO SCH (06:03)
--- NOTE | 2019-02-04 09:41 | PROGRESS NOTE ---
DATE: 02/04/2019 SUBJECTIVE: Mr. Mak was eating breakfast. He eats very well. He will still kind of choke sometimes on his food and start coughing. I watched him do that again this morning. OBJECTIVE: Temperature 98.8 degrees, pulse 89, respirations 20, blood pressure 122/67. Pupils are equal and round. Lungs are clear in all lung sanders. Cardiovascular Examination: Regular rhythm and rate without murmur or S3. Abdomen is soft. Skin is warm and dry. Urine output is 1900 mL. ASSESSMENT AND PLAN: 1. Respiratory failure secondary to bibasilar pneumonia. Clinically improved. Moving air well. I think we can hopefully get him back to his skilled nursing. He is off of his supplementary oxygen right now. That has improved. 2. Diabetes mellitus type 2. Sugar is under good control. 3. Intellectual impairment, chronic cognitive impairment. He does seem to be calmer and hopefully he will be ready to go home soon. 4. Episodes of trouble swallowing. For the most part, he eats everything he can. Sometimes, it seems like food goes down the wrong way. I do not know any way to fix this for him. Try and sit him up when he eats. 5. Benign prostatic hypertrophy. 6. Hypertension. Blood pressures appear well controlled. REVIEW OF HIS LAB: I do not see any change. Hopefully, he can go home to skilled nursing tomorrow. cc: Clyde Nunez MD
[2019-02-04] MEDS: BUSPAR PO SCH ×2 (09:46→20:38)
[2019-02-04] MEDS: PRINIVIL PO SCH (09:47)
[2019-02-04] MEDS: ASPIRIN PO SCH (09:47)
[2019-02-04] MEDS: PROZAC PO SCH ×2 (09:47→20:38)
[2019-02-04] MEDS: COLACE PO SCH ×2 (09:47→20:38)
[2019-02-04] MEDS: RISPERDAL PO SCH ×3 (09:47→20:39)
[2019-02-04] MEDS: LEVAQUIN PO SCH (09:47)
[2019-02-04] MEDS: DEPAKOTE ER PO SCH (20:38)
[2019-02-04] MEDS: FLOMAX PO SCH (20:38)
[2019-02-04] MEDS: LOFIBRA PO SCH (20:39)
[2019-02-05] MEDS: DUONEB (A & A) INH SCH ×2 (03:28→07:49)
[2019-02-05] MEDS: PROTONIX PO SCH (06:10)
[2019-02-05] MEDS: LEVAQUIN PO SCH (09:43)
[2019-02-05] MEDS: PRINIVIL PO SCH (09:43)
[2019-02-05] MEDS: RISPERDAL PO SCH ×2 (09:43→11:47)
[2019-02-05] MEDS: BUSPAR PO SCH (09:43)
[2019-02-05] MEDS: ASPIRIN PO SCH (09:43)
[2019-02-05] MEDS: PROZAC PO SCH (09:43)
[2019-02-05] MEDS: COLACE PO SCH (09:45)
[2019-02-05 11:20] VITALS: BP 126/68
--- NOTE | 2019-02-05 13:05 | DISCHARGE SUMMARY ---
ADMISSION DATE: 01/24/2019 DISCHARGE DATE: 02/05/2019 HISTORY OF PRESENT ILLNESS: He is followed by Dr. Irving Holloway. This is a 59-year-old who lives in a [facility]. He came in because fever was worsening, more agitation, and hypoxemia. He has significant intellectual impairment which has been chronic. Presented with hypoxemia. He was sent over by his primary care physician, Dr. Holloway, who sent him to the emergency room. He is nonverbal, very belligerent, and it was really hard to get any information from him. Did appear to have a cough and congestion. His O2 saturations were 77% on room air. Chest x-ray showed dense left-sided pneumonia, so admitted for hypoxemia. PAST MEDICAL HISTORY: 1. Severe intellectual impairment, with asthma. 2. Anxiety. 3. Hypertension. 4. Dyslipidemia. 5. Gastroesophageal reflux disease. 6. 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 7. Diabetes mellitus type 2. PAST SURGICAL HISTORY: None. ADMISSION DIAGNOSES: 1. Pneumonia. 2. Acute respiratory failure. HOSPITAL COURSE: It appeared that he had pneumonia. He does appear at times to aspirate when he is eating. He has a very good appetite, eats all of his food. He eats very fast. He required 4- point restraints just because he is a large shahzad and he is not aware of his situation. He will pull out IVs and has potential even to get out of the bed and hurt himself. He was put on vancomycin and Azactam. He has an allergy to cephalexin. He required quite a bit of additional oxygen including bronchodilators. His repeat chest x-ray on 01/25/2019, better inspiration. We were able to slowly wean him off of his oxygen and down to nasal cannula. His chest x-ray repeated on 01/28/2019 showed interval improvement. Slowly able to wean him off the oxygen. He was eating well. He did have some raspiness in his cough at times, bronchial irritation, and there were still times when you could tell he would choke on some food. Really no suggestions to change that. He is not going to tolerate a swallow study and a swallow study is not going to change anything. We will not be able to feed him with an NG tube or a PEG tube. I do not think that is their desire. He would not be able to keep in. A PEG tube, I think, would be potentially dangerous for him. He is improved and felt like his lungs have cleared. Air and gas exchange improved, so I would like to send back to his [facility]. Take his Pizano catheter out. He is on aspirin 81 mg a day. He gets Tessalon Perles 100 mg q.4 hours, BuSpar 5 mg b.i.d. He can have some Tussionex cough medicine 5 mL q.12, Depakote ER 750 mg at bedtime, Colace 100 mg b.i.d., Lofibra which is fenofibrate 160 mg at bedtime, Prozac 10 mg b.i.d. We will keep him on Levaquin 750 mg p.o. daily for another 7 days, Prinivil 10 mg a day, Protonix 40 mg a day, Risperdal 1 mg b.i.d., Flomax 0.4 mg at bedtime, and we will hopefully discharge today. cc: Clyde Nunez MD
== END 2019-02-05 15:50 | disposition home or self-care (01) | DRG 189 ==
LOC: ED 12:10 → ICU 15:02 → SUATTDRO 15:02 → 2N 01-25 16:25 → 3N 02-02 17:55
PROVIDERS: ATTEND Emergency Medicine

== ENCOUNTER 2019-04-17 06:49 | Inpatient (IN) ==
[2019-04-17 07:17] LABS: ALLEN TEST YES; BE 5.3 mmoll (-3.0-3.0); BLOOD TYPE ARTERIAL; METHB 0.5 % (0.0-1.5); O2(CT) 17.9 mL/dL (15.0-23.0); O2HB 94.2 % (95.0-99.0); PO2(98.6) 76 mmHg (60-100); SAMPLE BLOOD; SAO2 96.4 % (95.0-100.0); THB 13.5 g/dL (11.5-17.4); pH(98.6) 7.38 (7.35-7.45)
[2019-04-17 07:20] LABS: MODALITY CANNULA; PCO2(98.6) 54 mmHg (35-45)
--- NOTE | 2019-04-17 07:32 | Diag Imaging Result Doc PS360 ---
EXAM: CHEST-PORTABLE HISTORY: fever TECHNIQUE: Single view COMPARISON: 01/31/2019 FINDINGS: Poor inspiratory effort. The heart is borderline mildly prominent. The vessels are mildly distended. There are no infiltrates. Small left pleural effusion with basilar atelectasis. IMPRESSION: Mild pulmonary edema with a small left pleural effusion. There may be an underlying infiltrate in the left base. Electronically signed by Erickson Díaz 04/17/2019 7:30 AM
[2019-04-17] MEDS ORDERED: TYLENOL PR ONE (07:33)
[2019-04-17 07:37] LABS: BASO# 0.02 X1000 (0.0-0.2); BASO% 0.1 % (0.0-0.8); HEMATOCRIT 40.4 % (42.0-52.0); HEMOGLOBIN 13.1 g/dL (14.0-18.0); IMM GRAN# 0.07 X1000 (0.0-0.04); IMM GRAN% 0.3 % (0.0-0.5); LYMPH# 0.88 X1000 (1.2-3.4); LYMPH% 3.9 % (20.5-51.1); MCH 29.1 PG (27-31); MCHC 32.4 g/dL (33-37); MCV 89.8 FL (81-99); MONO# 2.08 X1000 (0.11-0.59); MONO% 9.3 % (1.7-9.3); MPV 8.9 FL (7.4-10.4); NEUT# 19.23 X1000 (1.4-6.5); NEUT% 86.4 % (42.2-75.2); PLT 216 X1000 (130-400); WBC 22.28 X1000 (4.8-10.8)
[2019-04-17 07:39] LABS: URINE SOURCE CATH
[2019-04-17 07:44] LABS: BILIRUBIN URINE NEGATIVE (NEGATIVE); BLOOD URINE MODERATE (NEGATIVE); COLOR YELLOW; GLUCOSE URINE 200 mg/dL (NEGATIVE); KETONE URINE NEGATIVE (NEGATIVE); LEUKOCYTES URINE SMALL (NEGATIVE); NITRITE URINE NEGATIVE (NEGATIVE); PH URINE 8.5; PROTEIN URINE 50 mg/dL (NEGATIVE); SP GRAVITY URINE 1.021; TURBIDITY URINE CLEAR (CLEAR); UROBILINOGEN URINE 2 mg/dL (NORMAL)
[2019-04-17 07:46] LABS: UR EPITHELIAL CELLS <10 /HPF (<10); URINE BACTERIA 2+ /HPF; URINE RBC TNTC /HPF (<10); URINE WBC 20-40 /HPF (<10)
[2019-04-17] MEDS ORDERED: TYLENOL PO ONE (07:49)
[2019-04-17] MEDS ORDERED: VANCOMYCIN 1 GM/NS 1 GM/250 ML IVPB IV ONE ×2 (07:51→12:30)
[2019-04-17] MEDS ORDERED: ZOSYN 4.5 GM in NS 100 ML IV ONE (07:51)
[2019-04-17] MEDS ORDERED: NS 1,000 ML IV ONE ×3 (07:53)
--- NOTE | 2019-04-17 07:58 | PROVIDER DOCUMENTATION ---
HPI-Fever - General Chief Complaint: Shortness of Breath Stated Complaint: resp problems Time Seen by Provider: 04/17/19 07:10 Source: patient Allergies/Adverse Reactions: Patient Allergies Allergy/AdvReac Type Severity Reaction Status Date / Time Benzodiazepines Allergy Unknown Verified 04/17/19 07:36 cephalexin monohydrate * Allergy Unknown Verified 01/10/18 12:54 [From Keflex] Cephalosporins Allergy Unknown Verified 04/17/19 07:36 diazepam [From Valium] Allergy Unknown Verified 01/10/18 12:54 Home Medications: Home Medication List Medication Instructions Recorded Confirmed Last Taken Type Aspirin 81 mg PO DAILY 08/09/12 04/17/19 03/31/17 History Azelastine 137 Mcg Nasal [place] 2 spray SANJEEV BID 08/09/12 04/17/19 03/31/17 History [Astelin Nasal [place]] Docusate Sodium [Colace] 100 mg PO BID 08/09/12 04/17/19 03/31/17 History Fenofibrate 160 mg PO QHS 08/09/12 04/17/19 03/31/17 History Fluoxetine [Prozac] 10 mg PO BID 08/09/12 04/17/19 03/31/17 History Furosemide [Lasix] 20 mg PO DAILY 08/09/12 04/17/19 03/31/17 History Montelukast Sodium 10 mg PO QHS 08/09/12 04/17/19 03/31/17 History Iron Carbonyl/Ascorbic Acid 1 each PO DAILY #0 tablet 01/31/14 04/17/19 03/31/17 Rx [Icar-C] Acetaminophen [Tylenol] 1,000 mg PO Q6H PRN PRN 01/12/18 04/17/19 Unknown History Buspirone [Buspar] 5 mg PO BID 01/12/18 04/17/19 Unknown History Ipratropium/Albuterol INH 1 puff INH [id number] 01/12/18 04/17/19 Unknown History [Combivent Respimat Inhaler] Metoclopramide [Reglan] 10 mg PO AC + HS 01/12/18 04/17/19 Unknown History Risperidone [Risperdal] 0.5 mg PO DAILY #0 01/16/18 04/17/19 03/31/17 Rx Divalproex Sodium [Divalproex 3 tab PO HS 01/24/19 04/17/19 Unknown History Sodium ER] Lactulose 10 gm PO DAILY 01/24/19 04/17/19 Unknown History Lisinopril 10 mg PO DAILY 01/24/19 04/17/19 Unknown History Lovastatin 40 mg PO HS 01/24/19 04/17/19 Unknown History Ondansetron HCl 1 tab PO TID PRN PRN 01/24/19 04/17/19 Unknown History Pantoprazole Sodium [Protonix] 40 mg PO DAILY 01/24/19 04/17/19 Unknown History Potassium Chloride E.r. [Klor-Con] 10 meq PO DAILY 01/24/19 04/17/19 Unknown History Tamsulosin HCl 0.4 mg PO HS 01/24/19 04/17/19 Unknown History Cholecalciferol (Vit D3) [Vitamin 1,000 unit PO BID 04/17/19 04/17/19 Unknown History D] - History of Present Illness-Fever Nature of Presenting Problem: Presents to the [facility] via EMS from [facility] for "feeling sick and fever". No family at bedside. No history is able to be obtained from patient due to patient being nonverbal and unable to communicate. Per NH he is at his baseline mental status. Review of Systems - Adult - REVIEW OF SYSTEMS - ADULT ROS:: limited per condition Constitutional: reports: see HPI, fever Eyes: reports: see HPI Ears, Nose, Mouth & Throat: reports: see HPI Cardiovascular: reports: see HPI Respiratory: reports: see HPI Gastrointestinal: reports: see HPI Genitourinary: reports: see HPI Musculoskeletal: reports: see HPI Integumentary: reports: see HPI Neurological: reports: see HPI Psychiatric: reports: see HPI Endocrine: reports: see HPI Hematologic/Lymphatic: reports: see HPI Allergic/Immunologic: reports: see HPI All Other Systems: Reviewed and Negative Past History - Adult - PAST MEDICAL HISTORY-ADULT Review of Records: reports: Old Records Reviewed Major Childhood Illnesses: reports: denies history Cardiovascular: reports: HTN, hyperlipidemia Respiratory: reports: asthma Gastrointestinal: reports: GERD Obstetrical/Gynecological: reports: denies history Genitourinary: reports: kidney disease Musculoskeletal: reports: arthritis Neurological: reports: cognitive dysfunction, other (cerebral palsy; MR) Psychiatric: reports: psychiatric problems, other Endocrine/Immune: reports: denies history, Diabetes Other Conditions: reports: denies history - PRIOR SURGERIES/PROCEDURES Surgical/Procedure History: reports: none - IMMUNIZATION STATUS Childhood Immunizations: See Nurse Assessment Flu Vaccine: See Nurse Assessment - FAMILY HISTORY Family History: reviewed, not pertinent Physical Exam-General - PHYSICAL EXAM-ADULT Exam Limited by: patient attempting to hit Initial Vital Signs Reviewed: Yes - CONSTITUTIONAL General Appearance: alert, combative (right side of body flails and attempts to hit, left side of body is flaccid) - EYES Eyes: PERRL/EOMI - HEAD, EARS, NOSE, MOUTH & THROAT HENMT: normocephalic/atraumatic, other (dry mucous membranes) - NECK Neck: supple, normal inspection - RESPIRATORY Respiratory: chest non-tender, no respiratory distress, no accessory muscle use, decreased breath sounds, crackles (bilateral bases) - CARDIOVASCULAR Cardiovascular: normal peripheral pulses, no murmur, tachycardia - GASTROINTESTINAL (ABDOMEN) Abdominal Exam: normal bowel sounds, non tender, soft - MUSCULOSKELETAL Back Exam: normal inspection Extremity: normal capillary refill, other (bilateral LE contractures, LUE contractures) - SKIN Integumentary: warm/dry, pallor - NEUROLOGIC Neurologic: other (nonverbal, noncooperative, left sided neuro deficit, right side combative and attmepting to hit) - PSYCHIATRIC Psych/Mental Status: other (flat affect) Progress - PLAN OF CARE/RESULTS Progress/Plan/Lab Results: Vital Signs - 8 hr 04/17/19 06:57 04/17/19 06:59 04/17/19 07:01 Temperature 98.8 F 98.2 F 98.5 F Pulse Rate 112 H 64 110 H Respiratory Rate 15 18 20 Blood Pressure 150/97 150/97 140/93 O2 Sat by Pulse Oximetry 86 L 94 L 95 04/17/19 07:45 04/17/19 08:04 04/17/19 09:15 Temperature 98.1 F 98.8 F Pulse Rate 105 H 113 H 99 H Respiratory Rate 22 22 32 H Blood Pressure 142/92 142/92 155/95 O2 Sat by Pulse Oximetry 98 100 100 04/17/19 09:42 Temperature Pulse Rate 86 Respiratory Rate 22 Blood Pressure 132/82 O2 Sat by Pulse Oximetry 95 04/17/19 07:45 Influenza Screen - Final Nasopharyngeal Laboratory Results - last 24 hr 04/17/19 04/17/19 04/17/19 07:06 07:06 07:06 WBC 22.28 H RBC 4.50 L Hgb 13.1 L Hct 40.4 L MCV 89.8 MCH 29.1 MCHC 32.4 L RDW Std Deviation 13.0 Plt Count 216 MPV 8.9 Immature Gran % (Auto) 0.3 Neut % (Auto) 86.4 H Lymph % (Auto) 3.9 L [place] % (Auto) 9.3 Eos % (Auto) 0.0 Baso % (Auto) 0.1 Immature Gran # (Auto) 0.07 H Neut # (Auto) 19.23 H Lymph # (Auto) 0.88 L [place] # (Auto) 2.08 H Eos # (Auto) 0.00 Baso # (Auto) 0.02 Specimen Type ARTERIAL Sample Site L RADIAL pH 7.38 pCO2 54 H* pO2 76 HCO3 29.0 H Base Excess 5.3 H Oxyhemoglobin 94.2 L ABG O2 Sat (Calculated) 17.9 ABG O2 Saturation 96.4 ABG Carboxyhemoglobin 1.70 ABG Methemoglobin 0.5 [place] Test YES A-a O2 Difference 113.0 Total Hemoglobin 13.5 Lactate 1.10 Liter Flow 4.0 Blood Gas Modality CANNULA FiO2 % 36.0 Sodium 127 L Potassium 4.5 Chloride 89 L Carbon Dioxide 30 Anion Gap 8 BUN 8 Creatinine 1.0 Estimated GFR/1.73 m2 > 60 BUN/Creatinine Ratio 8 Glucose 132 H Calculated Osmolality 255 Calcium 9.3 Total Bilirubin 0.46 AST 16 ALT 25 Alkaline Phosphatase 58 Ammonia Troponin T High Sens Bbt-R-Xgmuzdynfmt Pept Total Protein 6.2 L Albumin 3.8 Globulin 2.4 Albumin/Globulin Ratio 1.6 Plasma Lactate Urine Source Urine Color Urine Turbidity Urine pH Ur Specific [place] Urine Protein Ur Glucose (Stick) Ur Ketones (Stick) Urine Blood Urine Nitrite Urine Bilirubin Urobilinogen Dipstick Urine Leukocytes Urine WBC (Auto) Urine RBC (Auto) U Epithel Cells (Auto) Urine Bacteria (Auto) 04/17/19 04/17/19 04/17/19 07:06 07:06 07:06 WBC RBC Hgb Hct MCV MCH MCHC RDW Std Deviation Plt Count MPV Immature Gran % (Auto) Neut % (Auto) Lymph % (Auto) [place] % (Auto) Eos % (Auto) Baso % (Auto) Immature Gran # (Auto) Neut # (Auto) Lymph # (Auto) [place] # (Auto) Eos # (Auto) Baso # (Auto) Specimen Type Sample Site pH pCO2 pO2 HCO3 Base Excess Oxyhemoglobin ABG O2 Sat (Calculated) ABG O2 Saturation ABG Carboxyhemoglobin ABG Methemoglobin [place] Test A-a O2 Difference Total Hemoglobin Lactate Liter Flow Blood Gas Modality FiO2 % Sodium Potassium Chloride Carbon Dioxide Anion Gap BUN Creatinine Estimated GFR/1.73 m2 BUN/Creatinine Ratio Glucose Calculated Osmolality Calcium Total Bilirubin AST ALT Alkaline Phosphatase Ammonia Troponin T High Sens 17 Hld-V-Ubgbibkjvva Pept 93 Total Protein Albumin Globulin Albumin/Globulin Ratio Plasma Lactate 1.3 Urine Source Urine Color Urine Turbidity Urine pH Ur Specific [place] Urine Protein Ur Glucose (Stick) Ur Ketones (Stick) Urine Blood Urine Nitrite Urine Bilirubin Urobilinogen Dipstick Urine Leukocytes Urine WBC (Auto) Urine RBC (Auto) U Epithel Cells (Auto) Urine Bacteria (Auto) 04/17/19 04/17/19 07:30 07:45 WBC RBC Hgb Hct MCV MCH MCHC RDW Std Deviation Plt Count MPV Immature Gran % (Auto) Neut % (Auto) Lymph % (Auto) [place] % (Auto) Eos % (Auto) Baso % (Auto) Immature Gran # (Auto) Neut # (Auto) Lymph # (Auto) [place] # (Auto) Eos # (Auto) Baso # (Auto) Specimen Type Sample Site pH pCO2 pO2 HCO3 Base Excess Oxyhemoglobin ABG O2 Sat (Calculated) ABG O2 Saturation ABG Carboxyhemoglobin ABG Methemoglobin [place] Test A-a O2 Difference Total Hemoglobin Lactate Liter Flow Blood Gas Modality FiO2 % Sodium Potassium Chloride Carbon Dioxide Anion Gap BUN Creatinine Estimated GFR/1.73 m2 BUN/Creatinine Ratio Glucose Calculated Osmolality Calcium Total Bilirubin AST ALT Alkaline Phosphatase Ammonia 54 Troponin T High Sens Drs-W-Uwiudrybxvh Pept Total Protein Albumin Globulin Albumin/Globulin Ratio Plasma Lactate Urine Source CATH Urine Color YELLOW Urine Turbidity CLEAR Urine pH 8.5 Ur Specific [place] 1.021 Urine Protein 50 A Ur Glucose (Stick) 200 A Ur Ketones (Stick) NEGATIVE Urine Blood MODERATE A Urine Nitrite NEGATIVE Urine Bilirubin NEGATIVE Urobilinogen Dipstick 2 A Urine Leukocytes SMALL A Urine WBC (Auto) 20-40 A Urine RBC (Auto) TNTC A U Epithel Cells (Auto) <10 Urine Bacteria (Auto) 2+ Orders Category Date Time Status Core Temperature ORDERED Care 04/17/19 07:00 Active CHEST-PORTABLE [RAD] Stat Exams 04/17/19 06:58 Completed ABG [RESP] Routine Lab 04/17/19 07:06 Completed AMMONIA [CHEM] Stat Lab 04/17/19 07:45 Completed BLOOD CULTURE [BLDCUL] Stat Lab 04/17/19 07:45 Results BNP [PRO B-NATRIURETIC PEPTIDE] Stat Lab 04/17/19 07:06 Completed CBC WITH ELECTRONIC DIFF [HEME] Stat Lab 04/17/19 07:06 Completed CMP [COMPREHENSIVE METABOLIC PANEL] [CHEM] Stat Lab 04/17/19 07:06 Completed INFLUENZA SCREEN A/B Stat Lab 04/17/19 07:45 Completed LACTATE, PLASMA [CHEM] Stat Lab 04/17/19 07:06 Completed TROPONIN T HIGH SENSITIVITY Stat Lab 04/17/19 07:06 Completed URINALYSIS W/POSS RFLX CULT [URINALYSIS] Stat Lab 04/17/19 07:30 Completed URINE CULTURE [RM] Routine Lab 04/17/19 07:30 Received 0.9% Sodium Chloride Inj [Ns] 1,000 ml Med 04/17/19 07:53 Active IV 150 mls/hr 0.9% Sodium Chloride Inj [Ns] 1,000 ml Med 04/17/19 07:53 Discontinued IV 999 mls/hr 0.9% Sodium Chloride Inj [Ns] 1,000 ml Med 04/17/19 07:53 Discontinued IV 999 mls/hr Acetaminophen [Tylenol] Med 04/17/19 07:49 Discontinued 650 mg PO NOW ONE Piperacillin/Tazobactam [Zosyn] 4.5 gm Med 04/17/19 07:51 Discontinued 0.9% Sodium Chloride Inj [Ns] 100 ml IV NOW Vancomycin 1 gm/Ns Med 04/17/19 07:51 Discontinued 1 gm in 250 ml IV NOW EKG [EKG] Stat Ther 04/17/19 07:01 Ordered Patient with WBC to 22k. Flu negative. CXR showing pulm edema and likely opacity on the left. UA with small LE and 2+ bacteria. LA is 1.3. Tachycardic on arrival and hypoxic to the 80s on room air. Patient showing pulm edema so concern for fluid overload with sepsis protocol but will give 2L as this is closer to ideal body weight. Spoke to hosp about patient and patient accepted to Dr Monteiro for admission. Fur erorders to be placed by their team. Result Diagrams: 04/17/19 07:06 04/17/19 07:06 - XRAY 1 XRAY Study: Chest (EXAM: CHEST-PORTABLE HISTORY: fever TECHNIQUE: Single view COMPARISON: 01/31/2019 FINDINGS: Poor inspiratory effort. The heart is borderline mildly prominent. The vessels are mildly distended. There are no infiltrates. Small left pleural effusion with basilar atelectasis. IMPRESSION: Mild pulmonary edema with a small left pleural effusion. There may be an underlying infiltrate in the left base. Electronically signed by Erickson Díaz 04/17/2019 7:30 AM) - CONSULTS/PCP/HOSPITALIST Notification #1 *Consult/PCP/Hospitalist*: ESTELA Sanderson for Hosp Time Discussed: 08:58 Consult Disposition: Admit (Dr Monteiro) Departure - Departure Date of Disposition Decision: 04/17/19 Time of Disposition Decision: 08:58 DIAGNOSIS: Pneumonia, Sepsis, UTI (urinary tract infection), Hypoxia, Pulmonary edema Disposition: ADMITTED INPATIENT 09 Certified Medical Emergency: Emergent Condition: Fair Referrals and Follow-Ups: Irving Holloway MD [Primary Care Provider] - - Critical Care Note This patient required my direct & personal management of CC.: Yes Total Time (mins): 35 Critical Care Statement: This patient required my direct personal management to treat or rule out processes, the absence of which, could potentiallly result in sudden, clinically significant life or limb threatening deterioration. Attestation - Physician/ JOSHUA Attestation Patient care was provided by Advanced Practice Provider:: No The physician spent face to face time with patient:: Yes Advanced Practice Provider documentation review:: Supervising physician onsite and consulted in the evaluation and care of this patient. The physician did have a face to face encounter with the patient.
[2019-04-17 07:59] LABS: ESTIMATED GFR > 60
[2019-04-17 08:00] LABS: AGAP 8; ALB/GLOB RATIO 1.6; ALBUMIN 3.8 g/dL (3.5-5.0); ALKALINE PHOSPHATASE 58 U/L (32-122); BUN 8 mg/dL (8-22); CALCIUM 9.3 mg/dL (8.8-10.2); CHLORIDE 89 mmol/L (98-107); COSMO 255; GLUCOSE 132 mg/dL (70-104); GOT 16 U/L (10-34); GPT 25 U/L (10-44); POTASSIUM 4.5 mmol/L (3.5-5.1); SODIUM 127 mmol/L (136-145); TCO2 30 mmol/L (25-35); TOTAL BILIRUBIN 0.46 mg/dL (0.20-1.00); TOTAL PROTEIN 6.2 g/dL (6.3-8.3)
--- NOTE | 2019-04-17 11:26 | HISTORY AND PHYSICAL ---
PRIMARY CARE PROVIDER: Dr. Holloway. CHIEF COMPLAINT: Per case mgr at bedside, fever and low O2 saturation. HISTORY OF PRESENT ILLNESS: Mr. Mak is a 59-year-old male with a past medical history of severe intellectual impairment, cerebral palsy, diabetes mellitus, GERD, hyperlipidemia, hypertension, asthma. Reported early this a.m. he spiked a fever and they noted his O2 saturations were around 87 to 89 percent. EMS was called and [facility]. He was unattended at that time. He is nonverbal. He does not communicate. Workup showed he was tachycardic, a white count of 22, hypercarbic on ABG with a pCO2 of 54, mildly hyponatremic at 127, with a urinary tract infection. Chest x-ray showed mild pulmonary edema with a small left pleural effusion and underlying infiltrate in the left base. Mohs Surgeon/General Dermatologist at bedside states that he was treated for pneumonia a little over a month ago and prior to that, he was also brought to the ED for being unresponsive secondary to being given oral medication which I believe was a sleeping pill. He was monitored in the ED and then [facility] at that time. He is being treated per the sepsis protocol. He was given 2 L of fluid, started on broad-spectrum antibiotics and placed on supplemental O2. Currently, he is hemodynamically stable. His oxygenation level is stable. We will monitor him on the floor. PAST MEDICAL HISTORY: As per HPI. PAST SURGICAL HISTORY: None. REVIEW OF SYSTEMS: Hard to obtain secondary to the patient's intellectual impairment. SOCIAL HISTORY: [facility]. ALLERGIES: Multiple. Benzodiazepines, Keflex, cephalosporins, Valium, all unknown reactions. HOME MEDICATIONS: Tylenol, aspirin, Astelin, BuSpar, vitamin D, Depakote, Colace, fenofibrate, Prozac, Lasix, ipratropium albuterol inhaler, Icar C, lactulose, lisinopril, lovastatin, Reglan, Singulair, Zofran, Protonix, potassium, Risperdal, and Flomax. PHYSICAL EXAMINATION: VITAL SIGNS: Temperature is 98.1 degrees, heart rate 86, respirations 22, blood pressure 132/82, O2 is 94% on 4 L nasal cannula. GENERAL: Mr. Mak is a 59-year-old male who is sitting up in the bed in no acute distress. HEENT: Atraumatic, normocephalic. PERRL. NECK: Supple. Trachea midline. Mucous membranes were dry. CARDIOVASCULAR: S1, S2 appreciated. PULMONARY: Bilateral scattered rhonchi throughout lung sanders. NEUROLOGIC: The patient does not really follow any commands. However, he does move all his extremities. Again, he is nonverbal. His lower extremities are somewhat contractured. The Mohs Surgeon/General Dermatologist advises that he does feed himself a healthy heart diet SKIN: Does appear to be warm, dry, and intact. He does have a bruise noted to his left upper inner thigh. GENITOURINARY: He has on a brief. LOWER EXTREMITIES: He does have ankle edema in his left ankle that is greater than his right. Diagnostic Data DIAGNOSTIC DATA: Chest x-ray, mild pulmonary edema with small left pleural effusion, may be an underlying infiltrate in the left base. LABORATORY DATA: White count 22, hemoglobin and hematocrit 13 and 40, platelet count is 216,000. ABG, pH 7.38, pCO2 54, PO2 76, bicarb 29, O2 saturation was 96 on 4 L. Chemistry: Sodium 127, potassium 4.5, BUN 8, creatinine 1.0, blood glucose is 132. Urinalysis: 2+ bacteria, 20 to 40 WBCs, small leukocytes, negative for nitrites. ASSESSMENT AND PLAN: 1. Acute respiratory failure secondary to hypoxemia prior to arrival and hypercarbia on ABG. We will continue with supplemental O2, bronchodilators, and aggressive pulmonary toilet as best as we can given his intellectual impairment. 2. Sepsis rule-in with pneumonia and urinary tract infection. He was given a 2 L fluid bolus. We will continue with IV fluids. He was initially given vancomycin and Zosyn. He does have an allergy to sulfa, so we will change him over to Azactam and await his urine culture. So far, his lactate levels have been negative. We will continue to trend. His heart rate has gone back down to sinus rhythm. 3. Left lower lobe pneumonia. Continue broad-spectrum antibiotics. 4. Urinary tract infection. Continue broad-spectrum antibiotics. Await culture. 5. Severe intellectual impairment with chronic agitation. We will need to continue his home medications. [facility]. We will consult Graphite Grinder. 6. Mild hyponatremia. We will continue with IV hydration. He does look somewhat dehydrated. Recheck his sodium in the a.m. 7. Diabetes mellitus. We will follow his blood sugars closely as he is not on any diabetic medications at home. 8. Further recommendations to follow physician evaluation, laboratory and diagnostic data. Dictated by DANNY Lam for Huey Monteiro MD cc: MD Irving Felix MD [facility]
[2019-04-17] MEDS ORDERED: DUONEB (A & A) INH PRN (12:08)
[2019-04-17] MEDS ORDERED: TYLENOL PO PRN (12:08)
[2019-04-17] MEDS ORDERED: VANCOMYCIN IV PER PHARMACY MISC SCH (12:08)
[2019-04-17] MEDS ORDERED: ZOFRAN PO PRN (12:08)
[2019-04-17] MEDS: DUONEB (A & A) INH SCH ×4 (12:44→22:57)
[2019-04-17] MEDS: AZACTAM 1 GM in NS 50 ML IV SCH ×2 (14:00→23:09)
[2019-04-17] MEDS ORDERED: NS 1,000 ML IV SCH (15:00)
[2019-04-17] MEDS: REGLAN PO SCH ×3 (18:10→23:03)
--- NOTE | 2019-04-17 20:37 | PROGRESS NOTE ---
DATE: 04/17/2019 ADDENDUM: I have seen and examined Mr. Mak today. Mr. Mak is a severely intellectually impaired gentleman who lives in a long-term with [facility]. Was brought in because of altered mental status, fever. Upon presenting to the emergency room, he was evaluated and was found to be extremely hypoxemic with oxygen saturation of 86, slightly tachycardic, and he has been admitted for possible sepsis and pneumonia in the left lower lobe. PHYSICAL EXAMINATION: Current vital signs: Blood pressure is 147/86, pulse of 101, respirations 20, temperature is 98.8 degrees. Patient is saturating 96% on 4 L. General: Mr. Mak is a 59- year-old gentleman. He is in bed, not seemingly distressed. HEENT: Mucosa is pink and moist. Anicteric. Acyanotic. Neck: Supple. Chest: Air entry was bilaterally reduced. There are some crackles in the posterior lung sanders bilaterally. Cardiovascular: Regular rate and rhythm. Abdomen: Soft. Extremities: No pedal edema. WHEAT COMBINE DRIVER: Patient is awake. He is nonverbal. He will intermittently throw his right arm aimlessly. Will move the lower extremities as well. He does not follow any commands. LABORATORY DATA: He has leukocytosis, predominantly neutrophils. His pCO2 was slightly elevated at 54. Chemistry is reviewed. Sodium is 127. His urine is also slightly pathological. A chest x-ray was done which shows pulmonary edema with small left pleural effusion. There might be an underlying infiltrate. ASSESSMENT: 1. Acute hypoxemic respiratory failure and acute on chronic hypercarbic failure. 2. Left lower lobe infiltrate with elevated white cell count, concerning for infectious process. Cultures have been done. Patient will be started on broad-spectrum antibiotics. 3. Altered mental status, likely from infectious encephalopathy on the background of static brain lesion. 4. Severe intellectual impairment with chronic episodic agitation. 5. Diabetes mellitus. 6. Hypertension. PLAN: 1. Mr. Mak will be admitted to the medical floor. 2. We will continue with the intravenous antimicrobial, including vancomycin and aztreonam. 3. Will be pending the blood cultures and sputum culture if we can get any. 4. His flu screen has been negative. 5. Please refer to the details of the History and Physical that has been dictated by the REAL ESTATE SALES ASSOCIATE in the chart. I have discussed the plan with her. I have also discussed my findings and plan with the nedater from [facility], who was at the bedside at the time of the encounter. cc: Huey Monteiro MD
[2019-04-17] MEDS ORDERED: DEPAKOTE ER PO SCH (21:00)
[2019-04-17] MEDS ORDERED: LOFIBRA PO SCH (21:00)
[2019-04-17] MEDS ORDERED: BUSPAR PO SCH (21:00)
[2019-04-17] MEDS ORDERED: SINGULAIR PO SCH (21:00)
[2019-04-17] MEDS: MEVACOR PO SCH (23:02)
[2019-04-17] MEDS: PROZAC PO SCH (23:02)
[2019-04-17] MEDS: COLACE PO SCH (23:02)
[2019-04-17] MEDS: VITAMIN D PO SCH (23:03)
[2019-04-17] MEDS: BUSPAR PO SCH (23:04)
[2019-04-17] MEDS: ASTELIN NASAL SPRAY NAS SCH (23:09)
[2019-04-18] MEDS: DUONEB (A & A) INH SCH ×6 (03:45→23:41)
[2019-04-18] MEDS: VANCOMYCIN 1,800 MG in NS 250 ML IV SCH ×2 (05:11→23:08)
[2019-04-18] MEDS: REGLAN PO SCH ×2 (06:54→11:03)
[2019-04-18] MEDS: AZACTAM 1 GM in NS 50 ML IV SCH ×2 (06:56→14:21)
--- NOTE | 2019-04-18 07:25 | Diag Imaging Result Doc PS360 ---
EXAM: CHEST-PORTABLE HISTORY: Pneumonia TECHNIQUE: Single view COMPARISON: 04/17/2019 FINDINGS: Poor inspiratory effort. The heart is mildly prominent. Mild central vascular distention. No pleural effusions identified. No consolidation. Small left basilar infiltrate is less pronounced. IMPRESSION: Interval improvement. Electronically signed by Erickson Díaz 04/18/2019 7:23 AM
[2019-04-18 08:51] LABS: BASO# 0.01 X1000 (0.0-0.2); HEMATOCRIT 38.1 % (42.0-52.0); HEMOGLOBIN 12.5 g/dL (14.0-18.0); IMM GRAN# 0.09 X1000 (0.0-0.04); IMM GRAN% 0.3 % (0.0-0.5); LYMPH# 0.89 X1000 (1.2-3.4); LYMPH% 3.2 % (20.5-51.1); MCH 30.1 PG (27-31); MCHC 32.8 g/dL (33-37); MCV 91.8 FL (81-99); MONO# 1.94 X1000 (0.11-0.59); MONO% 7.1 % (1.7-9.3); MPV 8.9 FL (7.4-10.4); NEUT# 24.46 X1000 (1.4-6.5); NEUT% 89.4 % (42.2-75.2); PLT 193 X1000 (130-400); RBC 4.15 XMIL (4.7-6.1); RDW 13.2 % (11.5-14.5); WBC 27.39 X1000 (4.8-10.8)
[2019-04-18 08:55] LABS: AGAP 7; ALB/GLOB RATIO 0.9; ALBUMIN 2.9 g/dL (3.5-5.0); ALKALINE PHOSPHATASE 159 U/L (32-122); BUN 8 mg/dL (8-22); CALCIUM 9.1 mg/dL (8.8-10.2); CHLORIDE 94 mmol/L (98-107); COSMO 257; CREATININE 0.8 mg/dL (0.7-1.2); ESTIMATED GFR > 60; GLUCOSE 157 mg/dL (70-104); GOT 13 U/L (10-34); GPT 18 U/L (10-44); POTASSIUM 4.3 mmol/L (3.5-5.1); SODIUM 127 mmol/L (136-145); TCO2 26 mmol/L (25-35); TOTAL BILIRUBIN 0.39 mg/dL (0.20-1.00)
[2019-04-18] MEDS ORDERED: RISPERDAL PO SCH (09:00)
[2019-04-18] MEDS ORDERED: ASPIRIN PO SCH (09:00)
[2019-04-18] MEDS: ASTELIN NASAL SPRAY NAS SCH ×2 (10:47→23:38)
[2019-04-18] MEDS: VITAMIN D PO SCH (10:48)
[2019-04-18] MEDS: PROTONIX PO SCH (10:48)
[2019-04-18] MEDS: PROZAC PO SCH ×2 (10:48→23:41)
[2019-04-18] MEDS: BUSPAR PO SCH (10:48)
[2019-04-18] MEDS: PRINIVIL PO SCH (10:49)
[2019-04-18] MEDS: COLACE PO SCH ×2 (10:49→23:39)
[2019-04-18] MEDS: ICAR-C PO SCH (10:49)
[2019-04-18] MEDS ORDERED: ZOFRAN IV PRN (14:05)
[2019-04-18 14:40] LABS: LYMPHS 7 % (21-51); SEGS 93 % (42-75)
[2019-04-18] MEDS: ATIVAN IV PRN (15:47)
--- NOTE | 2019-04-18 16:53 | PROGRESS NOTE ---
DATE: 04/18/2019 SUBJECTIVE: This morning Mr. Mak remains fairly the same. However, early on the on his nurse thought that he was having some congestion in his chest and then he threw up about 2- 3 times. When I went to evaluate him, he had just vomited. He seems, however, pretty stable. OBJECTIVE: Vital signs: Blood pressure is 137/80, pulse of 92, respirations 16, temperature 98.3 degrees. Patient is saturating 94%. General: Mr. Mak is a 59-year-old gentleman he was in bed. He did not seems to be in any distress. Mucosa is pink and moist. Anicteric. Acyanotic. Neck: Supple. Chest: Air entry was bilaterally reduced. There are a few crackles in the posterior lung sanders. Cardiovascular: Regular rate and rhythm. GI: Abdomen is soft. It is globally distended and tympanic. Bowel sounds present, but remarkably hypoactive.Extremities: No pedal edema. COUNSELING CASE MANAGER: Awake, alert, and is nonverbal. Intermittently, he will throw his right arm aimlessly. He has horizontal nystagmus present. LABORATORY DATA: Has been reviewed. WBC is up to 37.39, hemoglobin is 12.5, platelet count of 193,000. Chemistry is also reviewed. Sodium is 127. So far, urine culture is growing gram-negative pawel. Blood culture 1/2 is growing gram-positive cocci, unsure if that is a contaminant. PATIENT MEDICATIONS: Have all been reviewed. He continues to be on vancomycin and aztreonam. ASSESSMENT: 1. Acute hypoxemic respiratory failure and acute on chronic hypercarbic respiratory failure. 2. Left lower lobe infiltrate with elevated white cell count, concerning for infectious process. The patient is on broad-spectrum antibiotics. 3. Altered mental status. 4. Severe intellectual impairment with chronic episodic agitation. 5. Diabetes mellitus. We will continue with insulin regimen. 6. Distended abdomen with nausea and vomiting, concerning for obstruction versus ileus. We will get a KUB and go from there. 7. Horizontal nystagmus. I think this is chronic in this patient. Unsure if it is medication induced or it is as a result of his chronic static brain injury. We will check Depakote levels. For now are going to withhold his p.o. medicines, control him with Ativan and get him re-initiated when is more stable. cc: Huey Monteiro MD
--- NOTE | 2019-04-18 17:01 | Diag Imaging Result Doc PS360 ---
EXAM: CHEST-PORTABLE INDICATION: NG placement TECHNIQUE: One view COMPARISON: 04/18/2019 FINDINGS: The newly placed NG tube projects well below the diaphragm and is assumed to be in the antrum of the stomach in expected position. The lung bases are overexposed due to focus on the NG tube. The lungs are approximately stable, however. IMPRESSION: NG tube in expected position as described. Electronically signed by Donal Brannon 04/18/2019 4:58 PM
--- NOTE | 2019-04-18 17:22 | Diag Imaging Result Doc PS360 ---
EXAM: KUB ABDOMEN INDICATION: SBO TECHNIQUE: One view COMPARISON: 01/28/2014 FINDINGS: There is gaseous distention of the stomach. There is a fair amount of gas in the colon but no significant colonic distention. No definite small bowel distention is identified by this single view plain radiograph. No definite large volume free abdominal gas is appreciated. IMPRESSION: Nonspecific gaseous distention of the stomach. Electronically signed by Donal Brannon 04/18/2019 5:20 PM
[2019-04-18] MEDS: MIRALAX NG SCH (17:37)
[2019-04-18] MEDS: DULCOLAX PR SCH (17:37)
[2019-04-18] MEDS: MEVACOR PO SCH (23:41)
[2019-04-19] MEDS: AZACTAM 1 GM in NS 50 ML IV SCH ×4 (01:03→23:33)
[2019-04-19] MEDS: DUONEB (A & A) INH SCH ×6 (03:53→23:45)
[2019-04-19] MEDS ORDERED: SAMSCA PO ONE ×2 (05:17→13:45)
[2019-04-19] MEDS: ATIVAN IV PRN (11:02)
[2019-04-19] MEDS: COLACE PO SCH ×2 (13:33→20:50)
[2019-04-19] MEDS: ICAR-C PO SCH (13:33)
[2019-04-19] MEDS: MIRALAX NG SCH (13:33)
[2019-04-19] MEDS: ASTELIN NASAL SPRAY NAS SCH ×2 (13:34→20:50)
[2019-04-19] MEDS: DULCOLAX PR SCH (13:34)
[2019-04-19] MEDS: PRINIVIL PO SCH (13:34)
[2019-04-19] MEDS: PROTONIX PO SCH (13:34)
--- NOTE | 2019-04-19 14:54 | PROGRESS NOTE ---
DATE: 04/19/2019 SUBJECTIVE: This morning, Mr. Mak looked more lethargic but at the same time, agitated. He had an NG tube placed in last night which, just a couple of hours ago, I was told by the nurse that he had removed it. OBJECTIVE: At the time of the encounter, his vitals, blood pressure was 141/81, pulse was 105, respirations were 20, temperature was 98.9 degrees, the patient was saturating 94%. General Examination: Mr. Mak is a 59-year-old, gentleman. He is in bed. He does not seems to be in any cardiopulmonary distress. HEENT: Mucosa is pink and moist. Anicteric. Acyanotic. Neck: Supple. Respiratory System: Air entry is bilaterally reduced. A few crackles in the posterior lung sanders. Cardiovascular: Regular rate and rhythm. GI: Abdomen is soft. It is globally distended and tympanic. Bowel sounds hypoactive. Extremities: No pedal edema. 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 Intermittently thrashing the right arm. There was not any nystagmus on exam today. Is and Os: Urine output was 2000. Currently negative balance of 180. No laboratory data for today. The patient's blood cultures, one was positive for coagulase-negative which we think was a contaminant. The urine culture shows E. coli. Influenza was positive. ASSESSMENT: 1. Acute hypoxemic respiratory failure, acute and chronic hypercarbic respiratory failure. We will continue to monitor respiratory status. 2. Left lower lobe infiltrate with elevated white cell count, concerning for pneumonia. The patient is on broad-spectrum antibiotics. 3. Altered mental status on background of severe intellectual impairment. 4. Diabetes mellitus. Patient is on insulin regimen. 5. Ileus with background constipation. The patient had a nasogastric tube. However, he has accidentally removed this. We will continue with call Dulcolax as needed or enema to help with his bowel movements. 6. Horizontal nystagmus, presumably from medication side effects, resolved. 7. Hyponatremia with elevated urine sodium and urine osmolarity concerning for syndrome of inappropriate antidiuretic hormone secretion. This could be medication-related. His home medications including the selective serotonin reuptake inhibitors have all been withheld. He has been dosed with Samsca this morning and we will reevaluate the sodium tomorrow morning. 8. Escherichia coli urinary tract infection. We will continue with the antibiotics. cc: Huey Monteiro MD
[2019-04-19] MEDS: HALDOL IV PRN (17:04)
[2019-04-19] MEDS: VANCOMYCIN 1,800 MG in NS 250 ML IV SCH (17:05)
[2019-04-19] MEDS: MEVACOR PO SCH (20:50)
[2019-04-20] MEDS: DUONEB (A & A) INH SCH ×6 (03:35→23:53)
[2019-04-20] MEDS: AZACTAM 1 GM in NS 50 ML IV SCH ×4 (05:58→23:15)
[2019-04-20 08:52] LABS: CALCIUM 9.9 mg/dL (8.8-10.2); CREATININE 1.7 mg/dL (0.7-1.2); PHOSPHORUS 4.4 mg/dL (2.7-4.5); POTASSIUM 4.9 mmol/L (3.5-5.1)
[2019-04-20 08:53] LABS: HEMATOCRIT 41.7 % (42.0-52.0); HEMOGLOBIN 12.9 g/dL (14.0-18.0); MCH 28.7 PG (27-31); MCHC 30.9 g/dL (33-37); MCV 92.9 FL (81-99); MPV 8.7 FL (7.4-10.4); RBC 4.49 XMIL (4.7-6.1); RDW 13.4 % (11.5-14.5); WBC 16.23 X1000 (4.8-10.8)
[2019-04-20] MEDS: COLACE PO SCH ×2 (08:59→20:30)
[2019-04-20] MEDS: ASTELIN NASAL SPRAY NAS SCH ×2 (08:59→20:34)
[2019-04-20] MEDS: MIRALAX NG SCH (08:59)
[2019-04-20] MEDS: DULCOLAX PR SCH (08:59)
[2019-04-20] MEDS: ICAR-C PO SCH (09:00)
[2019-04-20] MEDS: PROTONIX PO SCH (09:00)
[2019-04-20] MEDS: PRINIVIL PO SCH (09:00)
--- NOTE | 2019-04-20 09:37 | Diag Imaging Result Doc PS360 ---
KUB ABDOMEN - 04/20/2019 INDICATION: SBO COMPARISON: 04/18/2019 FINDINGS: The gastric distention has resolved. There is a nonobstructive bowel gas pattern. No free air or abnormal calcifications. There is no constipation. IMPRESSION: No acute disease. Electronically signed by Ronny Beckman 04/20/2019 9:35 AM
[2019-04-20] MEDS: HALDOL IV PRN (14:40)
--- NOTE | 2019-04-20 16:15 | Diag Imaging Result Doc PS360 ---
EXAM: US RENAL 2 (RETROPER) COMPLETE HISTORY: piero/arf TECHNIQUE: Renal ultrasound COMPARISON: None. FINDINGS: The right kidney measures 11.0 x 5.9 x 6.0 cm. The left kidney measures 11.2 x 6.0 x 5.4 cm. Normal renal echotexture and cortical thickness. There is a 1.9 cm lower pole cyst on the left. No solid mass within either kidney. No stone or hydronephrosis. The urinary bladder is only mildly distended. Bladder volume is 49 cc. IMPRESSION: Normal renal ultrasound. Electronically signed by Erickson Díaz 04/20/2019 4:12 PM
[2019-04-20] MEDS: XYLOCAINE 2% JELLY UROJECT UR ONE ×2 (16:20→16:21)
[2019-04-20] MEDS ORDERED: VANCOMYCIN 1,800 MG in NS 250 ML IV SCH (17:00)
--- NOTE | 2019-04-20 19:53 | PROGRESS NOTE ---
DATE: 04/20/2019 I have seen and examined Mr. Mak today. He remains fairly stable. There was no sitter at the bedside at the time of the encounter. I understand Mr. Mak had a lot of bleeding from his Pizano catheter yesterday, so that was removed. Since then, he has been urinating some, but it continues to be bloody. OBJECTIVELY: Vitals: Blood pressure is 127/70, pulse of 110, respirations are 24, temperature is 98.4 degrees. General: Mr. Mak is a 59-year-old gentleman. He is in bed, in no distress. He is still in 4-point restraints, soft restraints. Neck: Supple. Chest: Good air entry bilaterally, a few crackles posteriorly. Cardiovascular: Regular rate and rhythm. GI: The abdomen was soft, distended, but nontender. Bowel sounds present but hypoactive. Extremities: No pedal edema. 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 LABORATORY DATA: WBC is down to 16.23, hemoglobin is 12.9, platelet count of 293,000. Chemistry is also reviewed. Sodium is up to 133, creatinine went up to 1.7. ASSESSMENT: 1. Acute hypoxemic respiratory failure and acute on chronic hypercarbic respiratory failure, stable. 2. Left lower lobe infiltrate with elevated white cell count, concerning for pneumonia. The patient is on broad-spectrum IV antibiotics. We have changed the vancomycin to Zyvox. Left lower lobe pneumonia. The patient is on Zyvox and aztreonam. 3. Altered mental status on background of severe intellectual impairment. 4. Diabetes mellitus. The patient is on insulin regimen. 5. Ileus with constipation. Patient, I am told, had multiple bowel movements yesterday. Repeat KUB seems to suggest improvement. 6. Horizontal nystagmus, presumably from medication side effects, resolved. 7. Hyponatremia, improved. 8. Escherichia coli urinary tract infection. The patient is on antimicrobial coverage. 9. Hematuria, presumably from a traumatic ureteral injury from the Pizano catheter. This has been removed. The patient has been evaluated by Urology. I have spoken with Dr. Hodge. At this point, he recommends to just keep the catheter out. So in general, I think Mr. Mak is fairly stable. He seems to be calmer today than days before. The abdomen is less distended. KUB this morning shows improvement. We are going to discontinue the vancomycin because of renal impairment. cc: Huey Monteiro MD MTDD
[2019-04-20] MEDS: DEPAKOTE ER PO SCH (20:30)
[2019-04-20] MEDS: ZYVOX PO SCH (20:30)
[2019-04-20] MEDS: MEVACOR PO SCH (20:30)
[2019-04-20] MEDS: RISPERDAL PO SCH (20:32)
--- NOTE | 2019-04-21 02:26 | CONSULTATION ---
DATE OF CONSULTATION: 04/20/2019 CHIEF COMPLAINT: Hematuria. HISTORY OF PRESENT ILLNESS: Mr. Mak is a 59-year-old with history of severe intellectual impairment, cerebral palsy, type 2 diabetes, gastroesophageal reflux, hyperlipidemia, hypertension, asthma, who was admitted to the hospital on 04/17/2019 due to low O2 saturations and concern for fever. The patient was admitted to the floor and was slightly more agitated yesterday and his abdomen was found to be distended and they placed a urethral catheter. This was reported as being bloody and drained blood clots and also was removed last night and patient continued to void blood. No obvious hematuria was found previously. Patient current has a urine culture growing E coli. The patient had a creatinine of 1.0 on admission and was down to 0.8 on Tuesday. However, it increased to 1.7 today. Urology was consulted due to acute kidney injury as well as hematuria. Nursing states the patient continues to have blood in his urine. He was evaluated at bedside with no active bleeding present inside his diaper with clear yellow urine present throughout the diaper. PAST MEDICAL HISTORY: 1. Severe intellectual impairment. 2. Cerebral palsy. 3. Type 2 diabetes. 4. Gastroesophageal reflux disease. 5. Hyperlipidemia. 6. Hypertension. 7. Asthma. PAST SURGICAL HISTORY: None. ALLERGIES: Benzodiazepines, Keflex, cephalosporins, Valium. HOME MEDICATIONS: 1. Tylenol. 2. Aspirin. 3. Astelin. 4. BuSpar. 5. Vitamin D. 6. Depakote. 7. Colace. 8. Fenofibrate. 9. Prozac. 10. Lasix. 11. Ipratropium. 12. Albuterol inhaler. 13. Icar-C. 14. Lactulose. 15. Lisinopril. 16. Lovastatin. 17. Reglan. 18. Singulair. 19. Zofran. 20. Protonix. 21. Potassium. 22. Risperdal. 23. Flomax. SOCIAL HISTORY: Patient lives in a [facility]. REVIEW OF SYSTEMS: Unable to obtain due to patient's intellectual impairment. PHYSICAL EXAMINATION: Vital Signs: Temperature 98.4 degrees, heart rate 95, blood pressure 127/82, oxygenation 100% on 2 L nasal cannula. General: No acute distress. Resting comfortably in bed. HEENT: Normocephalic, atraumatic. Pupils equal, round, reactive to light. Mucous membranes moist. Neck: Trachea midline. Pulmonary: Good respiratory effort. Cardiovascular: Regular rate and rhythm. Abdomen: Soft, nontender. Genitourinary: No suprapubic tenderness. No CVA tenderness. Multiple diapers are seen with a large amount of yellow urine with no evidence of blood clots or urethral bleeding. The patient's testicles are nontender to palpation. Urethral meatus is orthotopic with no blood present. Skin: No obvious skin lesions or rashes. Extremities: Small amount of lower extremity edema seen. Upper extremities have restraints present. LABS: White blood cell count 16.2, hemoglobin 12.9, hematocrit 41.7, platelets 293,000. Sodium 133, potassium 4.9, chloride 94, bicarb 30, BUN 25, creatinine 1.7. Glucose 143. Renal ultrasound shows no evidence of hydronephrosis or distended bladder. There is a lower pole left renal cyst with no solid masses in either kidney or obvious nephrolithiasis. ASSESSMENT AND PLAN: Mr. Mak is a 59-year-old who presented in consultation regarding hematuria and difficulty with catheter placement. It sounds like the catheter was attempted yesterday and had a large amount of bleeding present afterwards. This was left in place. However, it stopped draining and was removed. The patient has been able to void and his urine appears to be clear yellow at this time. He had a large amount of voids in his diaper with several yellow voids that were seen in his room. Uncertain what led to the bleeding, likely related to difficult catheterization. The patient's urine seems to be clear. Renal function did increase slightly overnight. Uncertain if this is related to dehydration versus obstruction. Renal ultrasound shows no evidence of hydronephrosis and bladder was relatively decompressed with only 50 mL, and I was in the room with the immigration paralegal as she performed the ultrasound. Would leave without a catheter and this was relayed to primary team today. The patient did have blood in his urine. I would consider outpatient followup regarding this. If he continues to have blood present when he is not having an infection, as his urine culture currently growing E. coli, may have consider workup with anesthetic cystoscopy and bilateral retrograde pyelograms in the future. We will continue to monitor from a urologic standpoint. Please call with questions or concerns. cc: Cory Hodge MD [facility]
[2019-04-21] MEDS: DUONEB (A & A) INH SCH ×6 (03:24→23:30)
[2019-04-21] MEDS: AZACTAM 1 GM in NS 50 ML IV SCH ×2 (06:31→15:52)
[2019-04-21 08:33] LABS: HEMATOCRIT 38.8 % (42.0-52.0); HEMOGLOBIN 11.8 g/dL (14.0-18.0); MCH 29.1 PG (27-31); MCHC 30.4 g/dL (33-37); MCV 95.6 FL (81-99); MPV 8.5 FL (7.4-10.4); RBC 4.06 XMIL (4.7-6.1); RDW 13.7 % (11.5-14.5); WBC 8.68 X1000 (4.8-10.8)
[2019-04-21 08:47] LABS: AGAP 8; ALB/GLOB RATIO 0.8; ALBUMIN 2.8 g/dL (3.5-5.0); ALKALINE PHOSPHATASE 71 U/L (32-122); BUN 26 mg/dL (8-22); CALCIUM 10.1 mg/dL (8.8-10.2); CHLORIDE 100 mmol/L (98-107); COSMO 285; CREATININE 1.5 mg/dL (0.7-1.2); ESTIMATED GFR 48; GLUCOSE 122 mg/dL (70-104); GOT 21 U/L (10-34); GPT 16 U/L (10-44); POTASSIUM 4.8 mmol/L (3.5-5.1); SODIUM 140 mmol/L (136-145); TCO2 32 mmol/L (25-35); TOTAL BILIRUBIN < 0.15 mg/dL (0.20-1.00); TOTAL PROTEIN 6.1 g/dL (6.3-8.3)
[2019-04-21] MEDS: ICAR-C PO SCH (10:47)
[2019-04-21] MEDS: MIRALAX NG SCH (10:47)
[2019-04-21] MEDS: DULCOLAX PR SCH (10:47)
[2019-04-21] MEDS: ASTELIN NASAL SPRAY NAS SCH ×2 (10:47→20:37)
[2019-04-21] MEDS: ZYVOX PO SCH ×2 (10:48→20:37)
[2019-04-21] MEDS: PROTONIX PO SCH (10:48)
[2019-04-21] MEDS: COLACE PO SCH ×2 (10:48→20:37)
--- NOTE | 2019-04-21 14:40 | PROGRESS NOTE ---
DATE: 04/21/2019 SUBJECTIVE: No acute events overnight. The patient has voided several times into his diaper. Nurses say that there is a small amount of blood present. The patient voided multiple times yesterday with clear yellow urine. Has been less agitated over the past 24 hours. PHYSICAL EXAMINATION: Vital Signs: Temperature 98.1 degrees heart rate 91, blood pressure 148/85, oxygen saturation 100% on 2 L nasal cannula. General: No acute distress. Resting comfortably in bed. Alert and oriented x3. Respiratory: Good respiratory effort without audible wheezing or rales. Abdomen: Soft, nontender. Genitourinary: No suprapubic tenderness. No CVA tenderness. No suprapubic distention. Normal phallus, bilateral testicles. A small amount of blood is seen in the diaper but no active clot seen from the meatus or in the diaper itself. A moderate amount of clear urine present within his diaper this morning. LABORATORY DATA: White blood cell count 8.68, hemoglobin 11.8, hematocrit 38.8, platelets 259,000. Sodium 140, potassium 4.8, chloride 100, bicarb 32, BUN 26, creatinine 1.5, glucose 122. PLAN: Mr. Mak is a 59-year-old with cerebral palsy, type 2 diabetes, gastroesophageal reflux disease, hypertension, hyperlipidemia, and asthma, who presents in consultation regarding hematuria. The patient had hematuria after catheter placement. The patient's renal function yesterday was 1.7, has downtrended to 1.5 today. Baseline appears to be closer to 1. The patient had a renal ultrasound performed which showed no evidence of hydronephrosis and a decompressed bladder. The patient's PVRs have been low. In talking with the primary team yesterday, they state that as long as he is voiding and not having elevated PVRs, they would hold off on catheter placement. There were no obvious nephrolithiasis or hydronephrosis was seen yesterday on his ultrasound. Overall, patient seems to be voiding. His urine was mostly clear today with a small amount of blood tinged within the diaper. I do not think the patient is actively bleeding and seems to be voiding without issue. Uncertain why he keeps his creatinine elevated with no evidence of hydronephrosis and decompressed bladder. May be related to medications versus clinical status. Patient's culture is growing E coli and blood cultures are growing Staph. White blood cell count is downtrending at 8.7 today. The patient currently is on linezolid. We will continue to monitor from a Urologic standpoint. Please call with questions or concerns. cc: Cory Hodge MD [facility]
[2019-04-21] MEDS: NS 1,000 ML IV SCH (15:52)
--- NOTE | 2019-04-21 18:15 | PROGRESS NOTE ---
DATE: 04/21/2019 SUBJECTIVE: This morning, Mr. Mak refers to be fairly stable. Still nonverbal. Per the nursing staff, the night was uneventful. OBJECTIVE: vital signs: Blood pressure is 155/80, pulse of 94, respiration is 19, temperature is 98.2 degrees. General: Mr. Mak is a 59-year-old, gentleman. He is in bed. He is not in any cardiopulmonary distress. Mucosa is pink and moist. Anicteric, acyanotic. He continues to be in 4-point restraint. Gastrointestinal: Abdomen is soft, minimally distended, but nontender. Bowel sounds present. Extremities: No pedal edema. Central nervous system: Awake, alert, moves all extremities, and he is nonverbal. LABORATORY DATA: WBC is down to 8.68, hemoglobin is 11.8, platelet count of 259,000. Chemistry is also reviewed. Sodium is normalized. Creatinine is down to 1.5. So far, the urine culture did show E coli. The blood culture was negative, except for a coag- negative Staph, it was 1/2, I think it is a contaminant. ASSESSMENT/PLAN: 1. Acute hypoxemic respiratory failure and acute on chronic hypercarbic respiratory failure. The patient is doing remarkably well. He is currently saturating 97% on between 2 to 5 L. 2. Altered mental status on background of severe intellectual impairment. The patient's mentation seems to be back to his baseline. 3. Diabetes mellitus. We will continue with insulin regimen. 4. Ileus with constipation associated with distended abdomen. Improved. 5. Horizontal nystagmus presumably from medication side effects. Resolved. 6. Hyponatremia on admission due to medication-induced syndrome of inappropriate antidiuretic hormone secretion. Improved. 7. Escherichia coli urinary tract infection. Patient is on aztreonam, today is day 4. 8. Left lower lobe infiltrate concerning for pneumonia. Patient was on aztreonam and vancomycin. He has been switched to Zyvox, to continue with the aztreonam. Today is day 4 on aztreonam and day 1 on Zyvox. We plan to treat for a total of 10 days. 9. Hematuria secondary to Pizano-induced urethral traumatic injury. Pizano catheter has been removed. The patient has been evaluated by Urology. 10. Episode of violent behavior. I understand this is not new. Patient has had this at the senior living according to the sitter who was with the patient on admission. The patient has been started back on some of his home medications. 11. Acute kidney injury. Renal ultrasound did not show any obstructive uropathy. Creatinine is down to 1.5. We are going to continue with gentle hydration, and as I said, vancomycin has been discontinued. In general, I think Mr. Mak seems to be fairly stable and calmer today. We are going to continue with the current antimicrobial coverage, gentle hydration. He has been started on mechanical soft diet and it is documented that he took about 100% of his dinner last night. Mr. Mak will ultimately be transitioned back to his senior living hopefully on Tuesday. cc: Huey Monteiro MD
[2019-04-21] MEDS: RISPERDAL PO SCH (20:37)
[2019-04-21] MEDS: DEPAKOTE ER PO SCH (20:37)
[2019-04-21] MEDS: MEVACOR PO SCH (20:37)
[2019-04-22] MEDS: AZACTAM 1 GM in NS 50 ML IV SCH ×3 (00:30→21:21)
[2019-04-22] MEDS: NS 1,000 ML IV SCH (00:30)
[2019-04-22] MEDS: DUONEB (A & A) INH SCH ×6 (04:05→23:29)
[2019-04-22 08:17] LABS: HEMATOCRIT 37.9 % (42.0-52.0); HEMOGLOBIN 11.3 g/dL (14.0-18.0); MCH 28.4 PG (27-31); MCHC 29.8 g/dL (33-37); MCV 95.2 FL (81-99); MPV 8.6 FL (7.4-10.4); RBC 3.98 XMIL (4.7-6.1); RDW 13.7 % (11.5-14.5); WBC 6.41 X1000 (4.8-10.8)
[2019-04-22 09:00] LABS: ALBUMIN 2.8 g/dL (3.5-5.0); CALCIUM 10.4 mg/dL (8.8-10.2); CREATININE 1.5 mg/dL (0.7-1.2); PHOSPHORUS 2.6 mg/dL (2.7-4.5); POTASSIUM 4.3 mmol/L (3.5-5.1)
[2019-04-22] MEDS: DULCOLAX PR SCH (09:42)
[2019-04-22] MEDS: ICAR-C PO SCH (09:42)
[2019-04-22] MEDS: ZYVOX PO SCH ×2 (09:42→21:18)
[2019-04-22] MEDS: COLACE PO SCH ×2 (09:42→21:18)
[2019-04-22] MEDS: PROTONIX PO SCH (09:42)
[2019-04-22] MEDS: ASTELIN NASAL SPRAY NAS SCH ×2 (09:42→21:30)
--- NOTE | 2019-04-22 17:26 | PROGRESS NOTE ---
DATE: 04/22/2019 SUBJECTIVE: This morning Mr. liu will remain stable. There was no family member at the bedside. No new complaints. OBJECTIVELY: Vitals: Blood pressure is 179/87, pulse of 86, respiration is 19, temperature 98.1 degrees. Patient is saturating 100% on 4 L. General: Mr. Liu is a 59-year-old gentleman. He is in bed. He is in four-point soft restraints. HEENT: Mucosa is pink and moist. Anicteric. Acyanotic. Neck: Supple. Respiratory System: Air entry is bilaterally reduced. Just some faint wheezing in the posterior lung sanders. There is also mildly prolonged expiratory phase of respiration. Cardiovascular: Regular rate and regular rate and rhythm. There is no murmurs no rubs no gallops. GI: Abdomen is soft. Bowel sounds present. Extremities: No pedal edema. 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 There is no more rotational nystagmus. ASSESSMENT: 1. Acute hypoxemic respiratory failure and acute on chronic hypercarbic respiratory failure, improved. 2. Altered mental status on background of severe intellectual impairment associated with intermittent episodes of agitation and violent behaviors. 3. Diabetes mellitus controlled. 4. Ileus with constipation, improved. 5. Horizontal and rotational nystagmus, presumably medication side effect, resolved. 6. Hyponatremia on admission, presumed to be medication induced syndrome of inappropriate antidiuretic hormone secretion, resolved. 7. Escherichia coli urinary tract infection. Patient is on aztreonam, today is day 5. 8. Left lower lobe infiltrate concerning for pneumonia. The patient is on aztreonam and Zyvox. We plan for 10 days treatment. He is currently 5 days on aztreonam and 2 days on Zyvox. 9. Hematuria secondary to Pizano induced ureteral traumatic injury, resolved. 10. Acute kidney injury. We will continue with the gentle hydration, avoid any nephrotoxin, and repeat the kidney function test tomorrow. DISPOSITION: Mr. Liu is a resident of a residential. He has been afebrile since the hospital course and we think his pneumonia is under control. I think he will potentially be able to be discharged tomorrow back to the residential. cc: Huey Monteiro MD
[2019-04-22] MEDS: RISPERDAL PO SCH (21:18)
[2019-04-22] MEDS: DEPAKOTE ER PO SCH (21:18)
[2019-04-22] MEDS: MEVACOR PO SCH (21:18)
[2019-04-23] MEDS: DUONEB (A & A) INH SCH ×4 (03:27→14:33)
[2019-04-23] MEDS: AZACTAM 1 GM in NS 50 ML IV SCH ×2 (05:35→14:39)
[2019-04-23] MEDS ORDERED: PROTONIX PO SCH (07:00)
[2019-04-23 09:02] LABS: ALBUMIN 3.2 g/dL (3.5-5.0); CREATININE 1.5 mg/dL (0.7-1.2); PHOSPHORUS 3.7 mg/dL (2.7-4.5); POTASSIUM 4.1 mmol/L (3.5-5.1)
[2019-04-23] MEDS: ASTELIN NASAL SPRAY NAS SCH (10:24)
[2019-04-23] MEDS: COLACE PO SCH (10:25)
[2019-04-23] MEDS: ICAR-C PO SCH (10:25)
[2019-04-23] MEDS: ZYVOX PO SCH (10:25)
[2019-04-23] MEDS: DULCOLAX PR SCH (10:29)
[2019-04-23 17:39] VITALS: BP 167/83
--- NOTE | 2019-04-24 19:00 | DISCHARGE SUMMARY ---
ADMISSION DATE: 04/17/2019 DISCHARGE DATE: 04/23/2019 DISPOSITION: Back to the half-way. FOLLOW-UP: 1. Dr. Stan Epps. 2. Dr. Hodge. CONSULTATION DURING THIS ADMISSION: Urology was consulted. Patient was seen by Dr. Hodge. INVASIVE PROCEDURES DONE DURING ADMISSION: None. IMAGING STUDIES OF SIGNIFICANCE: A chest x-ray did show some left pleural effusion with possible infiltrates in the left base. Subsequent chest x-ray showed interval improvement. KUB shows gastric distention. Renal ultrasound showed normal kidneys. ADMISSION DIAGNOSES: 1. Acute respiratory failure secondary to hypoxemia. 2. Sepsis to rule out pneumonia. 3. Left lower lobe pneumonia. 4. Urinary tract infection. DIAGNOSES AT TIME OF DISCHARGE: 1. Acute hypoxemic respiratory failure and acute on chronic hypercarbic respiratory failure improved. 2. Altered mental status on background of severe intellectual impairment associated with intermittent episode of agitation and violent behavior. 3. Diabetes mellitus. 4. Ileus with constipation during the hospital course improved. 5. Horizontal and rotational nystagmus, presumably medication induced, resolved during the hospital course. 6. Hyponatremia secondary to SIADH, presumed to be from medication induced. Improved. 7. E. coli urinary tract infection. 8. Left lower lobe infiltrate concerning for pneumonia. 9. Hematuria secondary to Pizano catheter induced ureteral traumatic injury resolved. 10. Acute kidney injury improving. DISCHARGE MEDICATIONS: 1. Colace 100 mg b.i.d. 2. Aspirin 81 mg p.o. daily. 3. Fluoxetine 10 mg b.i.d. 4. BuSpar. 5. Valproic acid 750 at night. 6. Lovastatin 40 mg p.o. at bedtime. 7. Pantoprazole 40 mg p.o. daily. 8. Lisinopril 10 mg p.o. daily. 9. Cholecalciferol. 10. Levofloxacin 250 p.o. daily. PRESENTING COMPLAINT: Shortness of breath. HISTORY OF PRESENT COMPLAINT: Mr. Mak is a 59-year-old male who has severe intellectual impairment came to the emergency room because of shortness of breath, low O2 saturation, and fever. Upon presentation, he was evaluated, and was found to have elevated white cell count, and was also hypoxemic with up to saturation of 86. He was presumed to have pneumonia, and was admitted to the medical floor. HOSPITAL COURSE: Mr. Mak was started on broad-spectrum IV antibiotics. Because he is allergic to the cephalosporins, he was started on aztreonam and vancomycin. During the hospital course, he did improve. However, because of his agitation, he pulled out his Pizano catheter which caused a lot of hematuria. Urology was consulted. Patient was seen by Dr. Hodge. He recommended to keep the catheter out. Mr. Mak continues to improve during the hospital course. He did have some constipation with ileus which improved as well. He did not have any more fever. His vitals stable. All his other comorbidities have been stabilized. He has been advised to maintain adequate hydration. We will continue with the p.o. antibiotics for 5 additional days. The patient will continue with his primary care physician. At the time of the discharge, white cell count has normalized. His sodium is still slightly elevated which he has been advised to switch. We have advised that he is given enough oral hydration, and his Lasix has been withheld. TIME SPENT: Time spent for discharge is 38 minutes. cc: Huey Monteiro MD
== END 2019-04-23 18:59 | disposition home or self-care (01) | DRG 871 ==
LOC: SUPCPDRO → ED 06:49 → EDIPHOLD 12:07 → 3N 16:41
PROVIDERS: ATTEND Internal Medicine